=== PATIENT | male | born 1970 | race Caucasian/White ===

== ENCOUNTER 2023-11-13 19:35 | Emergency (ER) | payer OTHER, SELFPAY ==
[2023-11-13 19:37] VITALS: BP 133/84
--- NOTE | 2023-11-13 20:22 | ED.GENMED ---
History of Present Illness
General
Chief Complaint: Ear Problem
Source: patient
Exam Limitations: none
Time Seen by Provider: 11/13/23 19:59
Nursing documentation reviewed up to this point in time: agreed with
History of Present Illness
History of Present Illness:
Patient to ED with cmoplaint of pain to right ear. States symptoms started approx. 3 weeks ago and continue to worsen. Denies fever/chills, recent illness. Reports discharge from his ear and now has pulsatile tinnitus. Brought self to ED for eval
Past History
Past History
ED Past Medical History: None
ED Past Surgical History: None
Social History
Tobacco: Former smoker
Alcohol: Occasional
Personal:
Living: with family
Family History
Family History: CAD (His grandparents) and Other (Mother with psoriasis); Negative Diabetes, Hypertension, Early CAD, Asthma or Cancer
Review of Systems
Review of Systems
Allergies reviewed?: Yes
All Other Systems: ROS reviewed and negative except as documented in HPI and ROS
Constitutional: Reports no symptoms
EENT: Reports other (pain, tinnitus right ear)
Respiratory: Reports no symptoms
Cardiac: Reports no symptoms
ABD/GI: Reports no symptoms
: Reports no symptoms
Musculoskeletal: Reports no symptoms
Skin: Reports no symptoms
Neurological: Reports no symptoms
Psychiatric: Reports no symptoms
Phy Exam
General Physical Exam
General Presentation: well appearing and no apparent distress
General age: appears stated age
General Skin: warm and dry
General Habitus: normal
General Mental: alert
General Hydration: appears well hydrated
ENT Exam
ENT Exam: EOMI, pharynx normal, neck supple, normocephalic and TM's abnormal (right TM perforation)
Eye Exam
Eye Exam: PERRL, EOMI and conjunctiva normal
Musculoskeletal Exam
Musculoskeletal Exam: full ROM and neuro vasc intact
Skin Exam
Skin Exam: normal color, warm/dry and no rash
Psychiatric Exam
Psychiatric Exam: normal mood/affect
Course
Orders/Labs/Results
Orders:
Orders
11/13/23 20:16
Amoxicillin 875 mg/Clav 125 mg [Augmentin 875 mg/125 mg] 1 tablet PO NOW STA
Neomycin/Polymyxin/Hc [Cortisporin Otic Suspension] 4 drop OTIC NOW STA
Vital Signs
Initial and Last Documented VS:
Initial Vital Signs
Temp Pulse Resp BP Pulse Ox
99.7 F 80 16 133/84 96
11/13/23 19:37 11/13/23 19:37 11/13/23 19:37 11/13/23 19:37 11/13/23 19:37
Last Documented Vital Signs
Temp Pulse Resp BP Pulse Ox
99.7 F 80 16 133/84 96
11/13/23 19:37 11/13/23 19:37 11/13/23 19:37 11/13/23 19:37 11/13/23 19:37
*Critical Care Note
Total Time (30-74mins, 75-104mins- exclusive of procedures): Not Applicable
Update Note
Update Note:
Right TM perforation. Augmentin started in dept. WIll discharge home, followup with ENT.
ED Attending Note
-
Portions of this chart may have been created with voice recognition software.� Occasional wrong word or��sound alike� substitutions may have occurred due to the inherent limitations of voice recognition software.
Discharge Plan
Departure
Patient Disposition: Home (Routine Discharge)
Date of Disposition: 11/13/23
Time of Disposition: 20:17
Patient with high blood pressure during this ER visit?: No
Condition: Good
Covid-19: Not Applicable
Discharge Problem:
Tympanic membrane perforation
Instructions: Ruptured Eardrum (DC)
Prescriptions:
New
amoxicillin-pot clavulanate 875-125 mg tablet
1 tab PO BID Qty: 20 0RF
No Action
aspirin [Aspir-Low] 81 MG tablet,delayed release (DR/EC)
81 mg PO DAILY
Referrals:
Fritz Smith DO [Family Provider] -
Mc Burns MD [Active] - Call in 1-3 days for appt
Discharge Date and Time
Print Language: TURKMEN
[2023-11-13] MEDS: CORTISPORIN OTIC SUSPENSION 4 DROP OTIC (20:35)
[2023-11-13] MEDS: AUGMENTIN 875 MG/125 MG 1 TABLET PO (20:35)
== END 2023-11-13 20:40 | disposition home or self-care (01) ==
LOC: EMR 19:35
PROVIDERS: EMERGENCY PHYSICIAN Emergency Medicine; FAMILY PHYSICIAN Family Medicine
DX: H72.91 Unspecified perforation of tympanic membrane, right ear (principal); Z87.891 Personal history of nicotine dependence
CPT/HCPCS: 99283

== ENCOUNTER 2023-11-28 14:16 | Emergency (ER) | payer OTHER, SELFPAY ==
[2023-11-28 14:22] VITALS: BP 127/99
--- NOTE | 2023-11-28 15:11 | ED.GENMED ---
History of Present Illness
General
Chief Complaint: Foreign Body Removal
Time Seen by Provider: 11/28/23 14:40
History of Present Illness
History of Present Illness:
52-year-old male presents to the emergency department upon referral from his primary care physician for evaluation of a possible foreign body in the right ear. He states that 10 days ago he was diagnosed with acute otitis media with perforation and
was prescribed otic antibiotics as well as oral antibiotics. These are completed at this time and he went back to his primary care for follow-up. Patient denies any pain but still has residual hearing loss after the initial diagnosis
Past History
Past History
ED Past Medical History: None
ED Past Surgical History: None
Social History
Tobacco: Former smoker
Alcohol: Occasional
Personal:
Living: with family
Family History
Family History: CAD (His grandparents) and Other (Mother with psoriasis); Negative Diabetes, Hypertension, Early CAD, Asthma or Cancer
Review of Systems
Review of Systems
Allergies reviewed?: Yes
All Other Systems: ROS reviewed and negative except as documented in HPI and ROS
Phy Exam
Physical Exam
Physical Exam:
GEN: Well appearing, NAD, WDWN
HEENT: Oral mucosa moist, no scleral icterus. The right external auditory canal is clear however the innermost aspect adjacent to the TM there is a yellowish and black collection of debris, unable to visualize the TM fully, no otorrhea
Cardiac: Regular rate
Lung: No respiratory distress, no tachypnea
MSK: No gross deformity or injuries
Skin: Good color, no pallor or jaundice, no rashes
Neuro: AO x3, moves all extremities freely
Psych: Calm, cooperative
Course
Vital Signs
Initial and Last Documented VS:
Initial Vital Signs
Temp Pulse Resp BP Pulse Ox
98.4 F 71 18 127/99 98
11/28/23 14:22 11/28/23 14:22 11/28/23 14:22 11/28/23 14:22 11/28/23 14:22
Last Documented Vital Signs
Temp Pulse Resp BP Pulse Ox
98.4 F 71 18 127/99 98
11/28/23 14:22 11/28/23 14:22 11/28/23 14:22 11/28/23 14:22 11/28/23 14:22
MDM/Problems Addressed
MDM/Problems Addressed:
Unclear if this is a foreign body or a collection of debris, will recommend ENT follow-up, hesitant to irrigate the ear given the recent perforation
*Critical Care Note
Total Time (30-74mins, 75-104mins- exclusive of procedures): Not Applicable
ED Attending Note
-
Portions of this chart may have been created with voice recognition software.� Occasional wrong word or��sound alike� substitutions may have occurred due to the inherent limitations of voice recognition software.
Discharge Plan
Departure
Patient Disposition: Home (Routine Discharge)
Date of Disposition: 11/28/23
Time of Disposition: 15:11
Patient with high blood pressure during this ER visit?: No
Discharge Problem:
Foreign body in ear
Prescriptions:
No Action
aspirin [Aspir-Low] 81 MG tablet,delayed release (DR/EC)
81 mg PO DAILY
amoxicillin-pot clavulanate 875-125 mg tablet
1 tab PO BID Qty: 20 0RF
Referrals:
Jacinto Guerrero MD [Active] -
Activity Restrictions/Additional Instructions:
Call the ENT specialist office tomorrow for follow up appointment
We discussed that irrigating the ear may be detrimental
Interventions
Interventions:
*Risk Screen - Suicide Last Done: 11/28/23 14:22
*General Assessment Last Done: 11/28/23 14:22
*Neglect/Abuse Screening Last Done: 11/28/23 14:22
*ED COVID-19 Vaccine History Last Done: 11/28/23 14:22
*Nursing Disposition Last Done: 11/28/23 15:31
Discharge Date and Time
Discharge Date/Time: 11/28/23 15:32
Print Language: ANGUILLAN
== END 2023-11-28 15:32 | disposition home or self-care (01) ==
LOC: EMR 14:16
PROVIDERS: EMERGENCY PHYSICIAN Student in an Organized Health Care Education/Training Program; FAMILY PHYSICIAN Family Medicine
DX: T16.1XXA Foreign body in right ear, initial encounter (principal); W44.9XXA Unspecified foreign body entering into or through a natural orifice, initial encounter; Z87.891 Personal history of nicotine dependence
CPT/HCPCS: 99282

== ENCOUNTER → 2024-02-16 09:59 | Outpatient (REF) | payer OTHER, SELFPAY | LOC: HWRAD 09:59 | PROVIDERS: ATTENDING PHYSICIAN Family Medicine | DX: Z87.891 Personal history of nicotine dependence (principal) | CPT/HCPCS: 71271 ==

== ENCOUNTER 2025-03-25 19:35 | Emergency (ER) | payer OTHER, SELFPAY ==
[2025-03-25 19:43] VITALS: BP 119/95
[2025-03-25 19:56] LABS: Hematocrit 47.2 % (39.0-52.0); Hemoglobin 16.3 g/dL (13.0-18.0); Mean Corp Hgb Conc. 34.5 g/dL (33.0-37.0); Mean Corpuscular Volume 90.1 fL (80.0-94.0); Nucleated Red Blood Cells % 0 % (-); Platelet Count 262 10^3/uL (130-400); Red Cell Dist. Width 13.2 % (11.5-14.5)
[2025-03-25 20:13] LABS: ALT (SGPT) 41 U/L (0-50); AST (SGOT) 28 U/L (17-59); Albumin 4.5 g/dl (3.5-5.0); Alkaline Phosphatase 76 U/L (38-126); Blood Urea Nitrogen 26 mg/dl (9-20); Calcium 9.6 mg/dl (8.4-10.2); Carbon Dioxide 28 mmol/L (22-30); Chloride 100 mmol/L (98-107); Glucose 104 mg/dl (70-99); Potassium 4.3 mmol/L (3.5-5.1); Sodium 135 mmol/L (135-145); Total Protein 7.5 g/dl (6.3-8.2); eGFR > 60.00
[2025-03-25 20:24] LABS: Troponin I 0.016 ng/ml
[2025-03-25 20:48] VITALS: BP 131/61
--- NOTE | 2025-03-25 20:52 | ED.GENMED ---
History of Present Illness
General
Chief Complaint: Chest Pain
Source: patient
Exam Limitations: none
Time Seen by Provider: 03/25/25 20:47
History of Present Illness
History of Present Illness:
Note:
CHIEF COMPLAINT(S)
Chest pain
HISTORY OF PRESENT ILLNESS
The patient is a 54-year-old male who presents with chest pain that began a week to a week and a half ago. The patient describes the pain as occurring after physical activity, such as playing golf. He expresses that the pain is located more toward
the center of his chest and slightly upwards, with radiating discomfort. 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 He originally felt the chest pain while
walking during a golf game on Tuesday. The patient has a history of smoking and raises the possibility of coronary artery disease due to family history; however, his parents have no known heart history, though his grandfather had a cardiac condition.
The pain is concerning enough to warrant further investigation, although the initial blood tests, including hormone tests, appear normal.
PAST MEDICAL AND SURIGICAL HISTORY
The patient reported having a calcium scoring test (CT scan) in the past as part of cardiac evaluation.
SOCIAL HISTORY
The patient reports current smoking.
REVIEW OF SYSTEMS
- Chest: Describes central chest pain that radiates, associated with exertion and stress.
- Respiratory: States occasional breathing difficulty when inhaling deeply or exposure to cold air.
- Psychological: Reports experiencing stress related to business matters.
PHYSICAL EXAM
General: Alert, no acute distress.
Skin: Warm, dry.
Head: Normocephalic, atraumatic.
Neck: Supple, trachea midline.
Eye Ears, nose, mouth and throat: Oral mucosa moist.
Cardiovascular: Normal peripheral perfusion, no edema.
Respiratory: Respirations are non-labored.
Gastrointestinal: Abdomen nondistended.
Back: Normal range of motion, Normal alignment.
Musculoskeletal: Normal range of motion, normal strength.
Neurological: Alert and oriented to person, place, time, and situation. No focal neurological deficit observed.
Psychiatric: Cooperative, appropriate mood and affect.
PLAN
- Repeat the troponin test to continue evaluating cardiac risk, given the chest pain symptoms.
- If the repeated tests are negative, plan to discharge the patient and arrange a follow-up with a manager regulatory.
- The patient will receive a follow-up call tomorrow morning from the cardiology team.
- Review the patients prior calcium scoring test results to assess for any significant findings relevant to the current presentation.
DIFFERENTIAL DIAGNOSIS
The Differential Diagnosis includes, in no particular order and is not limited to:
1. Coronary artery disease
2. Gastroesophageal reflux disease
3. Musculoskeletal pain
4. Costochondritis
5. Pulmonary embolism
6. Pneumothorax
7. Anxiety-related chest pain
8. Pericarditis
9. Aortic dissection
10. Pneumonia
EKG
My independent EKG interpretation is:
- Time of EKG: Not specified
- Rhythm: Normal sinus rhythm
- Heart Rate: 78 bpm
- MA Interval: Normal
- QRS Duration: Normal
- QT Interval: Normal
- Leland: Normal
- Abnormalities: None
- Overall Interpretation: Normal EKG
Disposition:
SUMMARY OF ENCOUNTER
The patient is a 54-year-old male who was seen in the emergency department for chest pain that began a week to a week and a half ago. The chest pain occurred after physical activity, such as playing golf, and was described as central with some
radiating discomfort. The patient has a history of smoking and a familial history that raises the possibility of coronary artery disease; however, his immediate family has no known cardiac conditions. Initial blood tests, including hormone tests,
appeared normal. In the emergency department, serial troponin tests were negative, and an EKG was normal. The patient was assessed to not be suffering from acute coronary syndrome (ACS) at the time of evaluation. Management included the decision to
discharge the patient with instructions to follow up with cardiology through a chest pain hotline.
DISPOSITION
Discharge
PLAN
The patient is to be discharged with a follow-up arrangement through the chest pain hotline for cardiology consultation. Further assessment and management based on cardiology evaluation may be necessary.
INDEPENDENT REVIEW OF LABS AND INTERPRETATION OF TESTS
My independent review of the troponin test reveals serial negative results. My independent EKG interpretation is: Normal sinus rhythm, no abnormalities identified.
FOLLOW-UP INSTRUCTIONS
The patient is advised to follow up with cardiology via the chest pain hotline for further evaluation.
MEDICAL DECISION MAKING
- Number and Complexity of Problems Addressed: Chronic conditions affecting care include a history of smoking and potential coronary artery disease. Differential diagnoses considered were: coronary artery disease, gastroesophageal reflux disease,
musculoskeletal pain, costochondritis, pulmonary embolism, pneumothorax, anxiety-related chest pain, pericarditis, aortic dissection, and pneumonia.
- Data:
Category 1: My independent interpretation of EKG showed no abnormalities. Clinical data from troponin tests indicated negative results.
Category 3: Management decisions were made based on normal EKG and negative troponin results with the decision to discharge the patient while ensuring follow-up with cardiology.
- Risk: Consideration of Admission/Observation: Escalation of care including admission/observation was considered given the complexity and risk of the patients presenting complaint, exam findings, and his underlying comorbidities. However,
ultimately I feel the patient is safe for outpatient management with close follow-up. Reasoning: Work-up reassuring, does not reveal any acute life/organ-threatening processes, patients symptoms well controlled upon reevaluation, reexamination is
reassuring, vitals are stable, patient agreeable with discharge, reliable for follow-up.
DIAGNOSIS
R07.9 Chest pain, unspecified
Past History
Past History
ED Past Medical History: None
ED Past Surgical History: None
Social History
Tobacco: Former smoker
Alcohol: Occasional
Personal:
Living: with family
Family History
Family History: CAD (His grandparents) and Other (Mother with psoriasis); Negative Diabetes, Hypertension, Early CAD, Asthma or Cancer
Phy Exam
Physical Exam
Physical Exam:
.
Scores
Heart Score for Chest Pain Patients
STEMI patient?: No
History: Slightly or Non-Suspicious
ECG: Normal
Age: >45 - <65 years
Risk Factors: 1 or 2 Risk Factors
Troponin: </= Normal Limit
Heart Score for Chest Pain Patients: 2
Heart Score Risk: 2.5% MACE over next 6 weeks
Course
Orders/Labs/Results
Orders:
Orders
03/25/25 19:36
Electrocardiogram (*1) Urgent
Reason for Study: Chest Pain
EKG- Treatment ONCE
03/25/25 19:48
Complete Blood Count/With Diff Urgent
Comprehensive Metabolic Panel Urgent
Troponin I Urgent
03/25/25 21:43
CR Chest - 2 Views Urgent
Comment:
Reason For Exam: chest pain
03/25/25 22:25
Electrocardiogram (*1) Urgent
Reason for Study: Chest Pain
EKG- Treatment ONCE
03/25/25 22:28
Troponin I Urgent
03/25/25 23:54
Aspirin Chewable [Low Strength Aspirin] 324 mg .ROUTE .STK-MED ONE
Aspirin Chewable [Low Strength Aspirin] 324 mg PO NOW STA
03/26/25 01:17
Troponin I Urgent
Abnormal Lab Results
03/25/25 03/25/25 03/26/25
19:48 22:28 01:17
MCH 31.1 H pg
(27.0-31.0)
Abs Immat Gran (auto) 0.1 H 10^3/uL
(0-0.05)
Immature Gran % 0.6 H %
(0-0.5)
BUN 26 H mg/dl
(9-20)
Glucose 104 H mg/dl
(70-99)
Troponin I 0.035 H* D ng/ml 0.037 H* ng/ml
03/25/25 19:48
03/25/25 19:48
Vital Signs
Initial and Last Documented VS:
Initial Vital Signs
Temp Pulse Resp BP Pulse Ox
97.6 F 93 16 119/95 99
03/25/25 19:43 03/25/25 19:43 03/25/25 19:43 03/25/25 19:43 03/25/25 19:43
Last Documented Vital Signs
Temp Pulse Resp BP Pulse Ox
97.6 F 64 14 126/82 96
03/25/25 19:43 03/26/25 01:45 03/26/25 01:45 03/26/25 01:00 03/26/25 01:15
*Pulse Oximetry
SaO2: 99
Oxygen Mode of Delivery: Room air
Patient hypoxic: no
*Critical Care Note
Total Time (30-74mins, 75-104mins- exclusive of procedures): Not Applicable
ED Attending Note
-
Portions of this chart may have been created with voice recognition software.� Occasional wrong word or��sound alike� substitutions may have occurred due to the inherent limitations of voice recognition software.
Discharge Plan
Departure
Patient Disposition: Home (Routine Discharge)
Date of Disposition: 03/26/25
Time of Disposition: 02:15
Patient with high blood pressure during this ER visit?: Yes
Condition: Good
Discharge Problem:
Chest pain
Instructions: Chest Pain CBC Follow Up, BLOOD PRESSURE
Prescriptions:
No Action
aspirin [Aspir-Low] 81 MG tablet,delayed release (DR/EC)
81 mg PO DAILY
amoxicillin-pot clavulanate 875-125 mg tablet
1 tab PO BID Qty: 20 0RF
Referrals:
Fritz Smith DO [Family Provider, Family Practice] - Call in 1-3 days for appt
Interventions
Interventions:
*Risk Screen - Suicide Last Done: 03/25/25 19:43
*General Assessment Last Done: 03/25/25 19:43
*Neglect/Abuse Screening Last Done: 03/25/25 19:43
*ED COVID-19 Vaccine History Last Done: 03/25/25 21:58
*ED Influenza Vaccine History Last Done: 03/25/25 21:58
[facility] Fall Risk Assessment Tool Last Done: 03/25/25 21:58
ED- Cardiac Assessment Last Done: 03/25/25 21:58
Discharge Date and Time
Print Language: BURKINAN
[2025-03-25 21:00] VITALS: BP 138/75
[2025-03-25 21:58] VITALS: BMI 27.5
[2025-03-25 22:00] VITALS: BP 122/70
[2025-03-25 23:00] VITALS: BP 112/73
[2025-03-25 23:43] LABS: Troponin I 0.035 ng/ml
[2025-03-25] MEDS: LOW STRENGTH ASPIRIN 324 MG PO (23:56)
--- NOTE | 2025-03-25 23:57 | EDRN ---
Patient was updated on labs and plan fo repeat troponin around 0130, patient resting comfortably otherwise
[2025-03-26] VITALS: BP 135/75
[2025-03-26 01:00] VITALS: BP 126/82
--- NOTE | 2025-03-26 01:48 | EDRN ---
Patient ambulated to the restroom and back in bed resting comfortably
[2025-03-26 02:00] VITALS: BP 126/74
[2025-03-26 02:11] LABS: Troponin I 0.037 ng/ml
== END 2025-03-26 02:59 | disposition home or self-care (01) ==
LOC: EMR 19:35
PROVIDERS: Emergency Medicine; EMERGENCY PHYSICIAN Emergency Medicine; FAMILY PHYSICIAN Family Medicine
DX: R07.9 Chest pain, unspecified (principal); R03.0 Elevated blood-pressure reading, without diagnosis of hypertension; Z82.49 Family history of ischemic heart disease and other diseases of the circulatory system; Z79.82 Long term (current) use of aspirin
CPT/HCPCS: 99284; 71046; 80053; 84484; 85025; 93005

== ENCOUNTER 2025-03-28 08:03 | Day surgery (SDC) | payer OTHER, SELFPAY ==
[2025-03-28] VITALS (10 sets, daily range): BP systolic 103–155; BP diastolic 64–118; BMI 27.0
[2025-03-28] MEDS: NSS 238 ML IV (08:48)
[2025-03-28] MEDS: LOW STRENGTH ASPIRIN 81 MG PO (08:49)
[2025-03-28] MEDS: NSS 1000 IV (12:22)
--- NOTE | 2025-03-28 13:48 | ITS.CL.CATH ---
[facility] Operator - Catheterization
Cardiac Catheterization
Procedure Report:
CARDIAC CATHETERIZATION REPORT
Date of Procedure: 03/28/2025
Referring: Pancho Taylor M.D.
INDICATION: High risk chest pain.
PROCEDURE:
1. Left heart catheterization.
2. Coronary angiography.
A total of 24 minutes of procedural/moderate sedation was utilized. An independent biomedical repair technician was present to assist with and help manage the patient's level of consciousness and physiologic status.
ACCESS:
1. 6 [place] right radial artery using a modified Seldinger technique.
CATHETERS:
1. 5 [place] JR4.
2. 5 [place] JL 3.5.
HEMODYNAMIC DATA
Weight (kg): 79.2
AO (s/d/x, mmHg): 120/77/95
LV (s/x mmHg): 124/9
AV gradient (x, mmHg): None.
LEFT VENTRICULOGRAPHY: Not performed.
CORONARY ANGIOGRAPHY
Dominance: Right.
Left Main: Normal size, bifurcating vessel. There is no coronary artery disease.
LAD: Normal size vessel giving rise to 2 diagonals. There is an 80+% lesion beginning in the proximal vessel reaching its most critical point in the mid LAD, immediately after the origin of the first diagonal.
Ramus: Congenitally absent.
Circumflex: Normal size, nondominant vessel giving rise to 1 obtuse marginal before terminating as a small arcade of left posterolateral branches. There is a 70% lesion in the proximal margin of the obtuse marginal.
RCA: Normal size, dominant vessel. There is a 60+ percent lesion within the ostium/proximal RCA with catheter dampening on engagement, a 75% lesion in the mid vessel and several 20% lesions in the distal vessel.
INTERVENTION(S)
None.
Closure Device: Vascular band.
Radiation (mGy): 283.96
DAP (cm2.Gy): 26.4301
Fluoroscopy time (minutes): 2.9
CONCLUSIONS
1. Right dominant circulation with an 80+% lesion in the proximal/mid LAD involving the origin of the first diagonal, a 70% lesion in the proximal margin of OM1, a 60+% lesion within the ostium/proximal RCA with catheter dampening on engagement
followed by a 75% lesion in the mid RCA and several 20% lesions in the distal RCA.
2. Normal filling pressures (LVEDP = 9 mmHg at 79.2 kg).
RECOMMENDATIONS:
1. Expectant management after cardiac catheterization via right radial approach.
2. Limited weight bearing on the right for one week.
3. Consultation with CT surgery regarding optimal revascularization strategy, favoring bypass given the patient's age and multivessel disease with proximal LAD involvement.
4. Start OMT/GDMT including metoprolol, aspirin and high-dose, high potency statin.
5. Sublingual nitroglycerin prescription has been provided for symptomatic relief.
6. Echocardiogram ordered (outpatient).
7. Stable for outpatient follow-up. We did review red flag symptoms.
Copy to: Fritz Smith D.O., Pancho Taylor M.D.
Cholo Nash, , FACC, FACP
== END 2025-03-28 14:47 | disposition home or self-care (01) ==
LOC: CATH 08:03
PROVIDERS: ATTENDING PHYSICIAN Internal Medicine Cardiovascular Disease; FAMILY PHYSICIAN Family Medicine; OTHER PHYSICIAN Student in an Organized Health Care Education/Training Program
DX: I25.10 Atherosclerotic heart disease of native coronary artery without angina pectoris (principal); R07.9 Chest pain, unspecified; Z79.82 Long term (current) use of aspirin; Z79.899 Other long term (current) drug therapy; F17.210 Nicotine dependence, cigarettes, uncomplicated
CPT/HCPCS: 93458; 99152; 99153; C1769; Q9967

== ENCOUNTER 2025-04-05 05:03 | Inpatient (IN) | payer OTHER, SELFPAY ==
[2025-04-02 08:22] VITALS: BMI 27.8
[2025-04-02 09:26] LABS: INR 0.94; PT 12.7 Sec (11.4-14.6)
[2025-04-02 09:30] LABS: Hematocrit 50.4 % (39.0-52.0); Hemoglobin 17.2 g/dL (13.0-18.0); Mean Corp Hgb Conc. 34.1 g/dL (33.0-37.0); Mean Corpuscular Volume 89.7 fL (80.0-94.0); Nucleated Red Blood Cells % 0 % (-); Platelet Count 252 10^3/uL (130-400); Red Cell Dist. Width 12.8 % (11.5-14.5)
[2025-04-02 09:35] LABS: Urine Character Clear (Clear)
[2025-04-02 09:37] LABS: ALT (SGPT) 50 U/L (0-50); AST (SGOT) 28 U/L (17-59); Albumin 4.9 g/dl (3.5-5.0); Alkaline Phosphatase 88 U/L (38-126); Blood Urea Nitrogen 19 mg/dl (9-20); Calcium 10.0 mg/dl (8.4-10.2); Carbon Dioxide 30 mmol/L (22-30); Chloride 98 mmol/L (98-107); Estimated Creatinine Clearance 71 ml/min; Glucose 92 mg/dl (70-99); Potassium 5.0 mmol/L (3.5-5.1); Sodium 134 mmol/L (135-145); Total Protein 8.1 g/dl (6.3-8.2); eGFR > 60.00
[2025-04-02 09:40] LABS: Urine Red Blood Cell 0-2 /HPF (0-2); Urine Squamous Cell 0-2 /LPF (Few); Urine White Cell 0-2 /HPF (0-5)
--- NOTE | 2025-04-02 10:48 | CM ---
Spoke with patient in PATs. We discussed pre-op CABG teaching including sternal and driving restrictions. Previously independent at baseline, lives with in 2 story home, no steps to enter, denies DMEs. He has the CT surgery education book,
soap, and instructions. He is agreeable to a follow up visit from the CT transitional care nurse following DC. CM role explained, all questions answered. Plan for CABG 04/05/25.
[2025-04-02 11:24] LABS: Glycohemoglobin (HgbA1c) 5.6 % (4.0-5.9)
[2025-04-05] VITALS (10 sets, daily range): BP systolic 98–122; BP diastolic 57–87; PULSE 68; BMI 26.9
[2025-04-05] MEDS: BACTROBAN 2% OINTMENT 1 APPLIC NASAL ×2 (06:00→20:00)
[2025-04-05] MEDS: PROTONIX 40 MG PO (06:05)
[2025-04-05] MEDS: MAGNESIUM OXIDE 400 MG PO (06:05)
[2025-04-05] MEDS: LOPRESSOR 12.5 MG PO (06:15)
--- NOTE | 2025-04-05 06:15 | W.CVOR.SURPR ---
CVOR Surgeon Immed Pre Op
-
I have examined this patient prior to performance of the scheduled procedure.
The patient's condition is unchanged from the time of the dictated/written History and
Physical and the patient is able to undergo the scheduled procedure.
CABG +/- LAAE
--- NOTE | 2025-04-05 06:30 | PTCARENOTE ---
Pt admitted to CVICU at 0511. VS done. Pt weighed. Admission questions, Pre-op checklist, and Med reconciliation completed. Metoprolol 12.5 mg po given per order of PA. at bedside. Dr. Lockwood in to see pt. CVOR called at 0623. Pt left for CVOR
with RN at 0629.
[2025-04-05 07:30] LABS: Urine Character Clear (Clear)
[2025-04-05 07:38] LABS: ACT+ - POC 118 Seconds (82-134)
[2025-04-05 08:19] LABS: Urine Red Blood Cell 0-2 /HPF (0-2); Urine White Cell 0-2 /HPF (0-5)
[2025-04-05 08:21] LABS: Urine Squamous Cell 0-2 /LPF (Few)
[2025-04-05 09:02] LABS: ACT+ - POC 524 Seconds (82-134)
[2025-04-05 09:15] LABS: B.E. - POC 0.7 mmol/L; Glucose - POC 117 mg/dl (70-99); HCO3 - POC 26 mmol/L (21-28); Hematocrit - POC 45 % PCV (42-52); Hemodilution- POC No; Hemoglobin Calculated - POC 15.3; Ionized Calcium - POC 1.18 mmol/L (1.15-1.33); Lactate - POC 0.39 mmol/L (0.36-0.75); O2 Saturation %Calculated-POC 99.9 % (94-98); PCO2 - POC 41 mmHg (35-48); PO2 - POC 355 mmHg (83-108); Potassium - POC 4.0 mmol/L (3.5-5.1); Sodium - POC 140 mmol/L (136-145); Specimen Type - POC Arterial; pH - POC 7.41 (7.35-7.45)
[2025-04-05 09:27] LABS: ACT+ - POC 576 Seconds (82-134)
[2025-04-05 09:49] LABS: B.E. - POC 1.1 mmol/L; Glucose - POC 159 mg/dl (70-99); HCO3 - POC 26 mmol/L (21-28); Hematocrit - POC 28 % PCV (42-52); Hemodilution- POC Yes; Hemoglobin Calculated - POC 9.6; Ionized Calcium - POC 1.01 mmol/L (1.15-1.33); Lactate - POC 1.05 mmol/L (0.36-0.75); O2 Saturation %Calculated-POC 99.9 % (94-98); PCO2 - POC 42 mmHg (35-48); PO2 - POC 292 mmHg (83-108); Potassium - POC 6.3 mmol/L (3.5-5.1); Sodium - POC 135 mmol/L (136-145); Specimen Type - POC Arterial; pH - POC 7.40 (7.35-7.45)
--- NOTE | 2025-04-05 09:50 | CM ---
pt in OR today, cm to follow
[2025-04-05 09:59] LABS: ACT+ - POC 533 Seconds (82-134)
[2025-04-05 10:02] LABS: B.E. - POC 0.1 mmol/L; Glucose - POC 185 mg/dl (70-99); HCO3 - POC 24 mmol/L (21-28); Hematocrit - POC 37 % PCV (42-52); Hemodilution- POC Yes; Hemoglobin Calculated - POC 12.7; Ionized Calcium - POC 1.05 mmol/L (1.15-1.33); Lactate - POC 1.26 mmol/L (0.36-0.75); O2 Saturation %Calculated-POC 99.9 % (94-98); PCO2 - POC 37 mmHg (35-48); PO2 - POC 245 mmHg (83-108); Potassium - POC 6.6 mmol/L (3.5-5.1); Sodium - POC 135 mmol/L (136-145); Specimen Type - POC Arterial; pH - POC 7.42 (7.35-7.45)
[2025-04-05 10:22] LABS: B.E. - POC -0.5 mmol/L; Glucose - POC 153 mg/dl (70-99); HCO3 - POC 24 mmol/L (21-28); Hematocrit - POC 35 % PCV (42-52); Hemodilution- POC Yes; Hemoglobin Calculated - POC 12.0; Ionized Calcium - POC 0.95 mmol/L (1.15-1.33); Lactate - POC 1.30 mmol/L (0.36-0.75); O2 Saturation %Calculated-POC 99.9 % (94-98); PCO2 - POC 37 mmHg (35-48); PO2 - POC 247 mmHg (83-108); Potassium - POC 5.8 mmol/L (3.5-5.1); Sodium - POC 138 mmol/L (136-145); Specimen Type - POC Arterial; pH - POC 7.42 (7.35-7.45)
[2025-04-05 10:33] LABS: B.E. - POC -0.8 mmol/L; Glucose - POC 149 mg/dl (70-99); HCO3 - POC 25 mmol/L (21-28); Hematocrit - POC 37 % PCV (42-52); Hemodilution- POC Yes; Hemoglobin Calculated - POC 12.5; Ionized Calcium - POC 1.29 mmol/L (1.15-1.33); Lactate - POC 1.44 mmol/L (0.36-0.75); O2 Saturation %Calculated-POC 97.0 % (94-98); PCO2 - POC 42 mmHg (35-48); PO2 - POC 94 mmHg (83-108); POC Comment POST; Potassium - POC 4.9 mmol/L (3.5-5.1); Sodium - POC 139 mmol/L (136-145); Specimen Type - POC Arterial; pH - POC 7.38 (7.35-7.45)
--- NOTE | 2025-04-05 10:59 | W.PN.CT.SURG ---
CT Surgery Operative Note
-
CARDIAC SURGERY OPERATIVE REPORT
Preoperative Diagnosis: Multivessel Coronary Artery Disease with unstable angina
Postoperative Diagnosis: Same
Procedure(s) Performed:
1. Standard Sternotomy with Aortic and Right Atrial Cannulation
2. Internal Mammary Artery Harvesting, Left
3. Multi Arterial Coronary artery bypass grafting x 3 (In situ CARDONA to LAD, Ao to radial to bifurcating OM, Ao to RSVG to RPDA)
4. Endoscopic vein harvesting of right lower extremity and left radial artery for conduit
5. Transesophageal echocardiography
6. Placement of Temporary Ventricular Pacing Wires
7. Left atrial appendage exclusion (35mm clip)
8. Rigid sternal fixation with plates and sternal wires (2 gold plates with 8 x 14mm screws)
Date of Surgery: 04/05/2025
Comorbidities:
1. Unstable angina in the setting of multivessel coronary artery disease
2. Recent smoking history
3. Family history of CAD
4. Hyperlipidemia
5. Hypertension
6. Psoriasis
Attending Surgeon: Darien Lockwood MD, MS
Assistants: Dante Rich PA-C (present and necessary to logistics assistant, endoscopic radial harvest, retraction, suction, exposure, suture management, and wound closure under my direction), Charisma Barboza PA-C (endo vein harvest)
Anesthesiology: Emile Valentine MD and Mariela Molina CRNA
Scrub and Circulating RNs: Kristi Solano RN, Darell Contreras RN
Taxi Proprietor: Cara Peterson CCP
Anesthesia: GETA
EBL: per perfusion records
Products: none, Cell Saver
CPB Time: 63 minutes
Aortic Cross Clamp Time: 52 minutes
Indication(s) for Procedures: This is a 54-year-old male with significant coronary calcification on his CT scan also has been experiencing chest discomfort with exertion and has progressed to chest pain at rest. He underwent left heart cath which
demonstrated multivessel coronary disease given his young age and disease pattern he was referred for surgical consideration. He is offered surgical revascularization using multiple arterial grafts given his age and disease pattern.
Conduit(s) Quality:
CARDONA -excellent, skeletonized
RSVG -excellent, large size but no varicosities, some mismatch in size compared to the RPDA target
Left radial -good quality, good size and caliber very small area of dissection distally which was excluded
Target(s) Quality:
RCA/PDA -small PDA however yielded a flow of approximately 20 cc a minute at a pressure of 80 mmHg across the vein graft
OM -excellent, good sized target accommodated the radial artery well and had a mean flow approximately 30 to 40 cc a minute at a pressure of 80 mmHg, excellent biphasic Doppler signal
LAD -excellent, good target, excellent visual flow to the LAD territory with visual pinking up the myocardium as well as the heart started beating upon release of the bulldog clamp.
Findings: His left ventricular ejection fraction preoperatively was 60% with no significant regional wall motion abnormalities. Following surgery his EF remained the same at 60% with no new regional wall motion abnormalities. The CARDONA was harvested
in a skeletonized fashion. Following bypass grafting, test dose cardioplegia was given down each distal and confirmed patency and hemostasis. Each distal was probed both proximally and distally to confirm disease and patency, respectively. There
was excellent visual flow into the LAD territory. Upon release of the bulldog clamp well testing the anastomosis his heart started beating. He did not require any blood products. Did not require any inotropic support. He was in sinus rhythm at
the end of the case. There was a short period while packing the chest for sternal wire placement where he developed ST changes and some hypotension. The packs were removed and I suspect that there was some radial artery spasm. The padding was
placed along the radial artery graft with immediate resolution of the ST segment elevation. I repeat transesophageal echo revealed no significant regional wall motion abnormalities or any changes from preoperative studies. His left atrial
appendage was verified be free of any thrombus or debris preoperatively and found to be totally occlusive postoperatively with 35mm clip (serial #[id number]).
Description of Procedure: The patient was taken to the operating room. Their identity and procedure to be performed were verified and they were positioned supine on the operating table. Induction via general anesthesia with endotracheal intubation
was performed and central venous access and arterial monitoring were inserted. A preoperative transesophageal echocardiogram was performed to assess cardiac function and valvular function. The patient was then prepped and draped from chin to feet in
a sterile fashion. A preoperative time-out was performed with all members of the team present. A midline chest incision was performed along with median sternotomy. Simultaneous endoscopic access of the right lower extremity for saphenous vein
harvest and left radial artery was obtained along with administration of an initial 5,000 units of IV heparin. A RulTract sternal retractor was positioned to exposure the left internal mammary bed. The mammary was harvested and found to have good
flow. A bulldog clamp was applied to the distal end of the mammary after dividing it. It was wrapped in a papaverine soaked RayTec and replaced back into the left hemithorax. The RulTract was exchanged for a median sternal retractor. The innominate
vein was isolated. Full heparinization was given (a total of 40,000 units). We created a pericardial well. The aortic cannulation site was chosen where it was soft, pliable, and free of calcium. Cannulation was performed with an arterial cannula in
the ascending aorta and a triple-stage venous cannula through the right atrial appendage. The arterial cannula line had an appropriate bounce and correlating pressures with test dosing. Next, a root vent/antegrade cannula was inserted into the
ascending aorta. The ACT was confirmed to be over 400 and retrograde autologous priming was performed before commencing cardiopulmonary bypass. The pulmonary artery was away from the aorta to facilitate a clamp site. The aortic cross-clamp
was placed after decreasing the flow on the bypass and mean arterial pressure. A total of 1.2L initial dose of antegrade Del-Nido cardioplegia solution was given and planned for re-dosing every 75 minutes as necessary. There was rapid
electro-mechanical arrest of the heart at 200 cc of cardioplegia. The left ventricle was observed for distention on echocardiogram and manual palpation. Cold slush was placed into a sponge and topically on the RV while we systemically cooled to 34
degrees centigrade.
I positioned the heart to expose the distal right coronary at the posterior descending artery. A nikolai blade was used to expose the coronary and perform the arteriotomy. Coronary Tsai scissors were used to enlarge the incision. The saphenous vein
was trimmed and beveled to an appropriate size. There was somewhat of a mismatch in size from the vein graft to the [place] RPDA which is quite small. The distal anastomosis was performed using 7-0 prolene in an end-to-side fashion. Antegrade
cardioplegia was administered into the graft. Appropriate hemostasis and flow were confirmed. The graft was measured for length to the aorta and cut. The heart was then rotated medially and the left atrial appendage was clipped with a 35mm device
flush the base. A suitable site on the bifurcated obtuse marginal was chosen with the larger branches chosen as the distal target. We dissected and prepared the distal target in a similar fashion. The distal end of the radial artery was spatulated
excluding an area of focal dissection. An end-to-side anastomosis was created with a 7-0 prolene. Antegrade cardioplegia was administered into the graft with the aid of an Angiocath. Appropriate hemostasis and flow were confirmed. The graft was
measured for length to the aorta and cut. A suitable target on the mid/distal left anterior descending was identified. We dissected and prepared the distal target in a similar fashion. We retrieved the CARDONA from the chest and created a pericardial
opening while being cognizant of the phrenic nerve to facilitate the course of the mammary. The distal end of the mammary was prepped and beveled to size. We verified orientation and length of the ESTEBAN and found brisk flow. An end-to-side anastomosis
was created with a 7-0 prolene. We temporarily released the bulldog clamp on the mammary to inspect flow. Perfusion to the LAD territory was visualized and hemostasis was confirmed. At this point the heart started to beat. The bull clamp was
replaced on the mammary. The heart was filled and the root was distended with antegrade cardioplegia to make final assessment of graft length and orientation. We created 2 aortotomies using a #11 blade then a 3.6mm aortic punch. The proximal
anastomoses were created in an end-to-side fashion using 6-0 prolene for the vein graft and 7-0 Prolene for the radial artery graft. At the the same time, we re-warmed to 36.5 degrees centigrade. The bulldog clamp was removed from the mammary.
Temporary bipolar ventricular pacing wires were placed on the base of the right ventricle. The patient was placed in a Trendelenburg position and flows on bypass were lowered. The aortic cross clamp was removed and flows were slowly brought back up.
All bypass grafts were inspected and were free from kinking or twisting. The distal and proximal anastomoses appeared hemostatic. Once transesophageal echocardiography appeared satisfactory for de-airing, the flows were temporarily lowered for root
vent removal. After verifying acceptable parameters, we initiated weaning from cardiopulmonary bypass. Once we were off cardiopulmonary bypass, the venous cannula was clamped and removed. A test dose of protamine was administered and the patient was
monitored for any adverse reaction before resuming protamine. Once half of the protamine dose was delivered, pump suckers were turned off and the systolic blood pressure was lowered for aortic decannulation. The aortic cannula was removed and
pursestrings were tied down. All cannulation sites were oversewn with a 4-0 prolene. The mammary bed was inspected and hemostasis was confirmed. Once the mediastinum was hemostatic, 19Fr Lane drain was placed in the left and right pleural cavity
and two 24Fr Lane drains were placed within the pericardium. The sternum was approximated with 4 #7 single and 3 #8 double stainless steel wires with additional gold plates and 14 mm screws x 8. Fascia was approximated with #1 vicryl suture. The
subcutaneous, dermis and epidermis were closed in layers in a running fashion. The skin wound was cleansed and dressed.
All instrument, sponge, and needle counts were confirmed to be correct x 2 at the end of the operation. The patient was transferred to the cardiac intensive care unit in critical but stable condition.
I, Dr. Darien Lockwood, was present, scrubbed for, and performed all critical elements of this procedure.
Darien Lockwood MD, MS
Cardiothoracic Surgeon
[facility]
This operative dictation was created using the [employer] dictation system. Please excuse any grammatical, typographical, or 'sound alike' errors
--- NOTE | 2025-04-05 11:07 | CON.INTV ---
Consultation
Consultation Request
Date/Time Consultation Requested: 04/05/2025 - 1033
Date/Time Consultation Performed: 04/05/2025 - 1101
Requesting Provider: GIULIANO Tucker
Performing Provider: Dr. Fields
Reason for Consultation: s/p CABG x3
Medical History
-
Chief Complaint: Elective CABG
History of Present Illness:
54-year-old male with a past medical history of multivessel CAD, history of tobacco use, Peyronie's disease, family history of CAD, hypercholesterolemia, psoriasis, and history of COVID-19 (04/2023) who presents for elective CABG. Patient known to
CT surgery service with last visit on 04/01/[address] Lockwood. Patient underwent a left heart catheterization on 03/28/2025 due to high risk chest pain, and this showed multivessel disease involving the proximal/mid LAD, proximal margin of the OM1,
ostium/proximal RCA and mid RCA. There was normal filling pressures seen with LVEDP 9 mmHg. Patient does exercise 3 times a week with weightlifting and light cardio. Discussion held with the patient and surgical revascularization was recommended
and he agreed to this. Today, patient underwent multi arterial CABG + left atrial appendage exclusion with a 35 mm clip. Patient underwent procedure with no immediate complications and was transferred to CVICU postoperatively for further care.
Manager [employer] service consulted for additional management/recommendations.
When I saw the patient, he was resting in bed in no acute distress. Drowsy from recent sedation although easily arousable but then quickly falls back asleep. He had already been extubated and was currently on 6 L/min nasal cannula, saturating 95%
with HR 73, BP via right radial A-line: 95/56, and currently on Levophed at 2 mcg/min, Cardene at 2.5 mg/hr and insulin 2.3 units/hr. He has bilateral pleural chest tubes and mediastinal chest tubes x 2.
PMHx: Multivessel CAD, history of tobacco use, peyronie's disease, family history of CAD, hypercholesterolemia, psoriasis, seasonal allergies, history of COVID-19 (April 2023)
PSHx: Eye surgery to fix strabismus (age 9), cardiac catheterization
Past Medical History
Past Medical History: Other (Above as per HPI)
Past Surgical History: Other (Above as per HPI)
Social History
Tobacco: Former Smoker
Alcohol: Occasional
Drug: None
Personal:
Living: With Family
Employment: Not Employed
Family History
Family History: CAD (Grandfather + brother), Hypertension (Mother) and Other (Migrated family history)
Allergies / Home Medications
Allergies
Allergy/AdvReac Type Severity Reaction Status Date / Time
onion Allergy Mild Rash Verified 04/05/25 05:42
Home Medications
�Medication �Instructions �Recorded �Confirmed �Last Taken �Type
aspirin 81 mg tablet,delayed 81 mg PO DAILY 05/17/16 04/05/25 04/04/25 08:00 History
release (Aspir-Low)
metoprolol succinate 25 mg 12.5 mg (1/2 x 25 mg) PO DAILY #90 03/28/25 04/05/25 04/04/25 19:30 Rx
tablet,extended release 24 hr tabs
nitroglycerin 0.4 mg sublingual 0.4 mg sublingual [id number] PRN 03/28/25 04/05/25 Unknown Rx
tablet chest pain #25 tabs
rosuvastatin 20 mg tablet 20 mg PO DAILY #30 tabs 03/28/25 04/05/25 04/04/25 19:30 Rx
multivitamin with minerals-folic 1 tab PO WEEKLY 04/05/25 04/05/25 03/22/25 08:00 History
acid 200 mcg chewable tablet
(Multivitamin Gummies)
Review of Systems
-
Unable to Obtain full review of systems at this time due to: Acuity
Vitals / Labs / Diagnostic Testing
Vital Signs
Temp Pulse Resp BP Pulse Ox
98.6 F 70 15 122/87 94
04/05/25 14:00 04/05/25 14:00 04/05/25 14:00 04/05/25 06:15 04/05/25 14:00
Lab Data
04/05/25 11:32
Laboratory Results
04/05/25 04/05/25
11:32 13:34
PT 16.1 H
INR 1.28
APTT 33.8
pH 7.37 7.27 L
pCO2 43 52 H
pO2 137 H 95
HCO3 24.9 23.9
O2 Delivery Level Not Reportable
Microbiology
04/02/25 08:38 Nose MRSA Screen - Final
No Methicillin Resistant Staphylococcus aureus isolated.
Diagnostic Testing:
Physical Exam
-
HEENT: Normocephalic and Anicteric
Cardiovascular: S1/S2 and Peripheral Edema (negative)
Respiratory: Wheeze (negative), Rales (negative), Rhonchi (negative), Non-Labored Respirations and Other (chest tubes: bilateral pleural chest tubes and mediastinal chest tubes x 2)
GI: Soft, Non Distended, Non Tender and Normal Bowel Sounds
Neurology: Tremors (negative) and Other (Drowsy although easily arousable and answering questions appropriately)
Skin: Warm and Dry
General: Respiratory Distress (negative), Comfortable, Fever (negative) and Chills (negative)
Assessment
-
Assessment: 54-year-old male with a past medical history of multivessel CAD, history of tobacco use, Peyronie's disease, family history of CAD, hypercholesterolemia, psoriasis, and history of COVID-19 (04/2023) who presents for elective CABG.
Patient known to CT surgery service with last visit on 04/01/[address] Lockwood. Patient underwent a left heart catheterization on 03/28/2025 due to high risk chest pain, and this showed multivessel disease involving the proximal/mid LAD, proximal
margin of the OM1, ostium/proximal RCA and mid RCA. There was normal filling pressures seen with LVEDP 9 mmHg. Patient does exercise 3 times a week with weightlifting and light cardio. Discussion held with the patient and surgical
revascularization was recommended and he agreed to this. On 04/05/2025, patient underwent multi arterial CABG + left atrial appendage exclusion with a 35 mm clip. Patient underwent procedure with no immediate complications and was transferred to
CVICU postoperatively for further care. Manager Credit Collections service consulted for additional management/recommendations.
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
Impression:
#MV CAD s/p multi-arterial CABG x 3 (In situ CARDONA to LAD, Ao to radial to bifurcating OM, Ao to RSVG to RPDA) + left atrial appendage exclusion with 35mm clip � POD #0
#Hypocalcemia
#Family history of CAD
#Former tobacco smoker
#Hypertension/hyperlipidemia
#Psoriasis
#History of COVID-19 (April 2023)
Plan:
Patient already extubated and is currently breathing comfortably on 6 L/min nasal cannula, saturating 94%
Continue to wean down supplemental O2 well-maintained SpO2 >90-94%
prn nebulized bronchodilators - not currently bronchospastic
Encourage incentive spirometer use q1hr while awake
Pulmonary artery catheter parameters will be followed
Pressors/antihypertensive/inotropes/diuretics will be provided as needed
Maintain MAP>65
Replete electrolytes with K>4, Mg>2
Monitor chest tube output (bilateral pleural chest tubes and mediastinal chest tubes x 2)
Monitor hemoglobin
Monitor platelet count and coags
Transfuse blood products as needed to maintain Hb>7g/dL, plt>50k (given post-operative status)
CT surgery managing chest tubes
Monitor blood sugar to maintain euglycemia with goal BG 110-140
Insulin drip per protocol
Aspiration precautions
DVT prophylaxis
Early nutrition
Early mobilization
Critical care statement: A total of 42 minutes of critical care time was provided for this patient today. This includes management of ventilator, spontaneous breathing trial, arterial blood gases, pressors, of unstable vital signs, evaluation of the
patient at bedside, reviewing the patient's pertinent medical records including radiographs, microbiology, laboratory evaluations, and discussion with primary team and critical care nursing.
[2025-04-05 11:39] LABS: Glucose - Point of Care 149 mg/dl (70-99)
[2025-04-05 11:52] LABS: B.E. -0.6 mmol/L; HCO3 24.9 mmol/L (21-28); O2 Saturation % 98.8 % (94-98); PCO2 43 mmHg (35-48); PO2 137 mmHg (83-108); Potassium 4.2 mMOL/L (3.5-5.1); Sodium 133 mMOL/L (136-145)
--- NOTE | 2025-04-05 11:54 | W.PN.UPDATE ---
Update Note
Progress Note Update
54-year-old male was electively admitted on 04/05/2025 for CABG due to exertional chest pain and triple-vessel coronary disease noted on left heart cath.
IV fluids: 1200
U.O.:� 600
Blood:� none
Wires:� V-wires
Drips: Cardene@ 2.5, Levo @ 2, Precedex @ 0.5, Insulin
�
NEURO: sedated, pupils +2mm B/L
RESP: #8OT @26cm> 500/40%/14/5. Lungs clear B/L. 2 mediastinal (5cc on arrival) and R/L pleural (0cc on arrival) chest tubes to -20cm suction. Sanguineous drainage
CV: RRR +S1, S2, no S3, no�rub, no murmur. Dermabond to median sternotomy. RIJ w/Slik intact; CVP 6
ABD: round, soft, no BS
EXT: no edema, +2/4 DP pulses B/L, no femoral bruit, RLE and LUE ANDRÉS wrap intact; right radial A-line intact
: Lu with clear yellow urine
�
A/P: POD #0 s/p CABG x 3 (CARDONA to LAD, radial to bifurcating OM, SVG to RPDA), Left atrial appendage exclusion (#35mm clip)
ZULEIKA: report pending�
- wean and extubate
- maintain SBP 90-130mmHg
- Cardene IV, transition to Norvasc POD #1 as BP/HR permit
# CAD
- will require ASA, Plavix, statin (Crestor), beta-grzegorz
- Ca+ grzegorz for radial patency
�
# acute surgical blood loss anemia-expected
- trend CBC
�
# Current tobacco
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
- assess need for Nicotine patch
�
# Pyronie's disease
- no difficulty w/Lu insertion
�
[2025-04-05] MEDS: DILAUDID 0.5 MG IV ×3 (12:03→22:50)
[2025-04-05 12:04] LABS: INR 1.28; PT 16.1 Sec (11.4-14.6)
[2025-04-05 12:05] LABS: APTT 33.8 Sec (23.4-35.0)
[2025-04-05 12:06] LABS: Hematocrit 39.9 % (39.0-52.0); Hemoglobin 13.8 g/dL (13.0-18.0); Platelet Count 193 10^3/uL (130-400)
[2025-04-05 12:07] LABS: Blood Urea Nitrogen 16 mg/dl (9-20); Estimated Creatinine Clearance 87 ml/min; Glucose 135 mg/dl (70-99); Magnesium 2.6 mg/dl (1.6-2.3)
[2025-04-05] MEDS: VERSED 0.5 MG IV ×2 (12:07→12:59)
[2025-04-05] MEDS: CRESTOR PO (12:08)
[2025-04-05] MEDS: NSS 500 IV (12:08)
[2025-04-05] MEDS: NEURONTIN PO ×2 (12:08→15:15)
[2025-04-05] MEDS: ANCEF 10 IV ×2 (12:08)
[2025-04-05] MEDS: NORVASC PO (12:09)
[2025-04-05] MEDS: CALCIUM GLUCONATE 100 IV (12:19)
[2025-04-05 12:20] LABS: Glucose - Point of Care 116 mg/dl (70-99)
--- NOTE | 2025-04-05 12:37 | PTCARENOTE ---
Pt arrived from CV[facility] to CVICU at 1130. Pt is intubated and sedated. Pt currently SR with HR 64. BP 102/56 MAP 70. CVP 10. Epicardial V wire in place, currently off. #8ET tube in place at 24cm at right lip. Vent set to SIMV 40% FiO2, rate 16, TV 500,
PEEP 5, pressure support 5. Pulse oximetry 99%. Oral care completed. Mediastinal chest tubes x2 and left/right pleural chest tubes in place to -20 suction, no sign of air leak or crepitus, drainage red in color. Bowel sounds hypoactive. Lu
catheter in place, draining yellow urine. Lu care completed. Midsternal incision approximated and MATERIAL MANAGER. Left arm incision with joseph wrap in place. Right leg incision with joseph wrap in place. Right groin puncture approximated with surgical adhesive.
Brachial and pedal pulses palpable. Right IJ cordis and SLIC intact. Right radial Kelsy in place. Pt currently on Levo at 2mcg/min, Cardene 2.5mg/hr, Precedex 0.5mcg/kg/hr, Insulin per glycemic protocol at 2.3units/hr. Post-op x-ray and EKG
obtained. Labs collected and reviewed, calcium being replaced.
--- NOTE | 2025-04-05 12:38 | PTCARENOTE ---
Pt with small red rash around sternal incision. Anesthesia at bedside, reported rash occurred during procedure and Benadryl was administered.
[2025-04-05 13:06] LABS: Glucose - Point of Care 117 mg/dl (70-99)
[2025-04-05 13:34] LABS: B.E. - POC -4.1 mmol/L; Blood Urea Nitrogen - POC 16 mg/dl (3-120); Chloride - POC 109 mmol/L (96-111); Creatinine - POC 1.11 mg/dl (0.3-1.0); Glucose - POC 139 mg/dl (70-99); HCO3 - POC 24 mmol/L (21-28); Hematocrit - POC 42 % PCV (42-52); Hemodilution- POC No; Hemoglobin Calculated - POC 14.3; Ionized Calcium - POC 1.40 mmol/L (1.15-1.33); Lactate - POC 3.43 mmol/L (0.36-0.75); O2 Saturation %Calculated-POC 94.8 % (94-98); PCO2 - POC 58 mmHg (35-48); PO2 - POC 90 mmHg (83-108); Potassium - POC 4.1 mmol/L (3.5-5.1); Sodium - POC 139 mmol/L (136-145); Specimen Type - POC Arterial; pH - POC 7.23 (7.35-7.45)
--- NOTE | 2025-04-05 13:38 | RESPNOTE ---
Patient extubated to 6 liter NC without incident-95%
GASTROENTEROLOGY PROFESSOR. RN and MD all bedside for extubation
[2025-04-05 13:56] LABS: B.E. -3.7 mmol/L; HCO3 23.9 mmol/L (21-28); O2 Saturation % 97.7 % (94-98); PCO2 52 mmHg (35-48); PO2 95 mmHg (83-108); Potassium 4.3 mMOL/L (3.5-5.1); Sodium 136 mMOL/L (136-145)
[2025-04-05 14:05] LABS: Glucose - Point of Care 100 mg/dl (70-99)
[2025-04-05] MEDS: OFIRMEV 100 IV (14:21)
[2025-04-05 14:39] LABS: ACT+ - POC 151 Seconds (82-134)
--- NOTE | 2025-04-05 14:43 | W.PN.CD ---
Today's Communication / Plan
-
wean vent
ASA/statin
Impression / Plan
-
54 yo male with newly diagnosed severe CAD, hyperlipidemia, tobacco abuse underwent CABG x 3 (CARDONA to LAD, radial to bifurcating OM, SVG to RPDA), Left atrial appendage exclusion (#35mm clip) today.
# Severe CAD
-s/p CABG
-EKG and tele with NSR
-ZULEIKA: EF 55-60%, no sig valve disease
-weaning from vent and IV drips
-ASA/statin
# Hyperlipidemia
-check lipids, goal LDL under 55
-cont rosuvastatin 20mg daily
# Tobacco abuse
-quit earlier this month
Physical Exam
Vital Signs/Labs
Vital Signs
Temp Pulse Resp BP Pulse Ox
98.6 F 70 15 122/87 94
04/05/25 14:00 04/05/25 14:00 04/05/25 14:00 04/05/25 06:15 04/05/25 14:00
04/04/25 04/05/25 04/06/25
06:59 06:59 06:59
Actual Weight 77.8 kg
04/05/25 11:32
PT 16.1 Sec (11.4-14.6) H 04/05/25 11:32
INR 1.28 04/05/25 11:32
APTT 33.8 Sec (23.4-35.0) 04/05/25 11:32
Magnesium 2.6 mg/dl (1.6-2.3) H 04/05/25 11:32
Physical Exam
EENT: Moist mucous membranes
Cardiovascular: Rhythm & rate is regular, Pedal edema is absent, JVD pressure is normal and Systolic murmur absent
Respiratory: Other (mechanical vent)
Data Reviewed
-
Date of Service: April 05, 2025
EKG: Tracing Personally Visualized and interpreted (NSR)
Medical Tests (PFT, Pathology etc): Report Reviewed by me (ZULEIKA: EF 55-60%)
Labs: Labs Reviewed by me
[2025-04-05] MEDS: TYLENOL PO (14:55)
[2025-04-05] MEDS: PACERONE PO (15:15)
[2025-04-05 15:30] LABS: Glucose - Point of Care 138 mg/dl (70-99)
--- NOTE | 2025-04-05 15:30 | PTCARENOTE ---
Pt awoke agitated and extremely restless. PRN Versed administered. CT YOU, Madonna, at bedside. Contacted respiratory therapist to change pt to trial CPAP. Pt tolerated CPAP for about 30 minutes before becoming agitated again. Pt was able to follow
commands. CT YOU, Madonna, and Dr. Mckeon at bedside. Respiratory therapist at bedside to extubate pt. Extubated at 1330 to 6L nasal cannula. Repeat ABG collected and reviewed.
[2025-04-05 15:42] LABS: B.E. -0.2 mmol/L; HCO3 24.8 mmol/L (21-28); O2 Saturation % 98.4 % (94-98); PCO2 41 mmHg (35-48); PO2 135 mmHg (83-108)
[2025-04-05 15:45] LABS: Hematocrit 40.3 % (39.0-52.0); Hemoglobin 14.3 g/dL (13.0-18.0); Platelet Count 206 10^3/uL (130-400)
[2025-04-05 16:18] LABS: Glucose - Point of Care 123 mg/dl (70-99)
[2025-04-05] MEDS: ROXICODONE 5 MG PO ×2 (16:27→20:26)
[2025-04-05] MEDS: LOW STRENGTH ASPIRIN 81 MG PO (16:27)
[2025-04-05] MEDS: ANCEF 5 IV (17:24)
[2025-04-05 18:27] LABS: Glucose - Point of Care 91 mg/dl (70-99)
--- NOTE | 2025-04-05 20:02 | PTCARENOTE ---
Assumed care of patient from prior Shift RN at 1900. Pt alert and oriented,SR on monitor with HR 68. On Cardene 2.5 mg/hr CVP 8-14. Epicardial V wire in place, currently off. rachial and pedal pulses palpable. RIJ cordis and SLIC in place,Kelsy
right rad in place. Lungs clear and diminished , On 2 LC NC with pulse oximetry 99%. 4 Chest tubes , Mediastinal x2 and left/right pleural tubes in place set to -20 suction, no air leak or crepitus noted, draining red output. Bowel sounds
hyperactive. Lu catheter in place, draining yellow urine. Lu care completed, and chg bath done . Midsternal incision approximated and TALA. Left arm incision site is wrap with joseph wrap. Right leg incision with joseph wrap in place. Right groin
puncture closed with with surgical adhesive. Pulses palpable. Insulin per glycemic protocol. Assessment in workflow see for details.
[2025-04-05 20:14] LABS: Glucose - Point of Care 117 mg/dl (70-99)
[2025-04-05] MEDS: SENOKOT 8.6 MG PO (20:26)
[2025-04-05] MEDS: FLEXERIL 5 MG PO (20:26)
[2025-04-05] MEDS: NEURONTIN 100 MG PO (22:15)
[2025-04-05] MEDS: TYLENOL 975 MG PO (22:15)
[2025-04-05] MEDS: PACERONE 200 MG PO (22:15)
[2025-04-05] MEDS: NORVASC 2.5 MG PO (22:15)
[2025-04-05 22:25] LABS: Glucose - Point of Care 97 mg/dl (70-99)
[2025-04-05] MEDS: MUCINEX 600 MG PO (22:50)
[2025-04-06] VITALS (28 sets, daily range): BP systolic 95–122; BP diastolic 53–80; PULSE 74; O2SAT 98–99; BMI 28.3
[2025-04-06 00:11] LABS: Glucose - Point of Care 105 mg/dl (70-99)
--- NOTE | 2025-04-06 00:53 | PTCARENOTE ---
Cardene infusion stop Norvasc given , 250 LR bolus given. Patient vitals stable, NSR on monitor, 100% on 2 L NC. Pain controlled, resting comfortably. assessment remains unchanged.
[2025-04-06 02:13] LABS: Glucose - Point of Care 75 mg/dl (70-99)
[2025-04-06] MEDS: ANCEF 5 IV ×2 (03:04→11:17)
[2025-04-06 03:44] LABS: Hematocrit 36.5 % (39.0-52.0); Hemoglobin 12.7 g/dL (13.0-18.0); Mean Corp Hgb Conc. 34.8 g/dL (33.0-37.0); Mean Corpuscular Volume 90.3 fL (80.0-94.0); Platelet Count 212 10^3/uL (130-400); Red Cell Dist. Width 12.9 % (11.5-14.5)
--- NOTE | 2025-04-06 03:54 | PTCARENOTE ---
BP Labile. restarted levophed. NSR, pain controlled.
[2025-04-06 04:07] LABS: Blood Urea Nitrogen 20 mg/dl (9-20); Calcium 8.7 mg/dl (8.4-10.2); Carbon Dioxide 24 mmol/L (22-30); Chloride 103 mmol/L (98-107); Estimated Creatinine Clearance 87 ml/min; Glucose 92 mg/dl (70-99); HDL Cholesterol 38 mg/dl; LDL Cholesterol, Calculated 53 mg/dl; Magnesium 1.8 mg/dl (1.6-2.3); Potassium 4.5 mmol/L (3.5-5.1); Sodium 132 mmol/L (135-145); Very Low Density Lipoprotein 21 mg/dl (0-30); eGFR > 60.00
[2025-04-06 04:10] LABS: Glucose - Point of Care 97 mg/dl (70-99)
--- NOTE | 2025-04-06 04:28 | W.PN.CT ---
Addendum entered and electronically signed by Killian Mckeon MD 04/06/25 08:43:
I saw and examined the patient.
The PA's note was reviewed and I agree with the note.
Comment:
POD#1 CABG x 3 w/ RA, ELAA
No issues overnight. Off gtts. De-lined
Norvasc PO started
Maintain CTs today
D/C jackson
OOB/IS/ambulate later
Original Note:
Today's Communication / Plan
-
-pod #1
-no significant issues overnight
-Tm 100.7 - encourage IS, started Mucinex
-per AT, gave 2.5 mg Norvasc last night and weaned off Cardene
-drips: insulin, Levo 5
-CT outputs: 2 meds 120/230, 2 pleur 130/240 in 12/24 hrs
-LR 500 overnight
-a-line is positional
-wean off Levo, then deline
-? d/c Jackson (has Peyronie's dz)
-d/c insulin
-current meds (ASA, Plavix, Crestor, Amio, Norvasc for radial graft, iv iron, Gabapentin, Protonix). Will hold Lopressor while on Levo
-encourage OOB
Assessment / Plan
-
- Multivessel Coronary Artery Disease with unstable angina- s/p Multi Arterial Coronary artery bypass grafting x 3 (In situ CARDONA to LAD, Ao to radial to bifurcating OM, Ao to RSVG to RPDA); Left atrial appendage exclusion (35mm clip); Rigid sternal
fixation with plates and sternal wires (2 gold plates with 8 x 14mm screws) by Dr. Lockwood on 04/05/25, pod #1
- Intraop ZULEIKA: LVEF preop and postop was 60% with no wma. There was a short period while packing the chest for sternal wire placement where he developed ST changes and some hypotension, suspected radial artery spasm. The padding was placed along
the radial artery graft with immediate resolution of the ST segment elevation. Repeat transesophageal echo revealed no significant regional wall motion abnormalities or any changes from preoperative studies. His left atrial appendage was verified
be free of any thrombus or debris preoperatively and found to be totally occlusive postoperatively with 35mm clip
- Unstable angina in the setting of multivessel coronary artery disease
- Recent smoking history- quit earlier this month
- Family history of CAD
- Hyperlipidemia
- Hypertension
- Psoriasis
- Acute postop blood loss anemia
- Acute postop atelectasis
- Acute postop hypovolemia with subsequent hypervolemia
- Acute postop hyponatremia
- Actue suspected postop pericarditis/+rub
Discussed patient care with: Nursing and Care Team
Subjective
-
Date of Service: April 06, 2025
Objective Data
-
PT 16.1 Sec (11.4-14.6) H 04/05/25 11:32
INR 1.28 04/05/25 11:32
APTT 33.8 Sec (23.4-35.0) 04/05/25 11:32
Vital Signs
Vital Signs
Temp Pulse Resp BP Pulse Ox
99.9 F 70 15 100/56 99
04/06/25 00:00 04/06/25 00:10 04/06/25 00:10 04/06/25 00:00 04/06/25 00:10
CT Intake/Output/Weight
04/05/25 04/05/25 04/06/25
06:59 18:59 06:59
Intake Total 515.0 / 985.7 470.7 / 985.7
Output Total 670 / 1010 340 / 1010
Balance -155.0 / -24.3 130.7 / -24.3
SaO2: 99
Physical Exam
-
General: Awake and AOx3
Cardiovascular: Regular rate & rhythm, No Murmurs and Rub
Respiratory: Decreased Breath Sounds
Sternum: Stable
Incision: Clean, Dry and Intact
Extremities: No Edema
Abdomen: soft, nontender, nondistended, + bowel sounds
Data Reviewed
-
Lab Results: Results Reviewed
Medications: Active Meds Reviewed
Chest X-Ray: Report Reviewed and Image Reviewed
ECG: Report Reviewed and Image Reviewed
[2025-04-06 05:48] LABS: Glucose - Point of Care 100 mg/dl (70-99)
[2025-04-06] MEDS: ROXICODONE 5 MG PO ×3 (06:05→15:57)
[2025-04-06] MEDS: TYLENOL 975 MG PO ×3 (06:05→21:08)
[2025-04-06 07:14] LABS: Glucose - Point of Care 111 mg/dl (70-99)
--- NOTE | 2025-04-06 08:28 | W.PN.INTV ---
Today's Communication / Plan
Recommendations
Post-op management per CT surgery
Goal BG 110-140
Removal of chest tubes per CT surgery team
Pain control
Monitor numbness/pain in left thumb - may need gabapentin if numbness interferes with sleep
Encourage IS
Pt downgraded to CVICU-telemetry. No additional recommendations at this time. Napper Runner/Pulmonary service will now sign off. Please reconsult if there are any additional questions/concerns, or if patient's respiratory status deteriorates.
Assessment
-
Assessment: 54-year-old male with a past medical history of multivessel CAD, history of tobacco use, Peyronie's disease, family history of CAD, hypercholesterolemia, psoriasis, and history of COVID-19 (04/2023) who presents for elective CABG.
Patient known to CT surgery service with last visit on 04/01/[address] Lockwood. Patient underwent a left heart catheterization on 03/28/2025 due to high risk chest pain, and this showed multivessel disease involving the proximal/mid LAD, proximal
margin of the OM1, ostium/proximal RCA and mid RCA. There was normal filling pressures seen with LVEDP 9 mmHg. Patient does exercise 3 times a week with weightlifting and light cardio. Discussion held with the patient and surgical
revascularization was recommended and he agreed to this. On 04/05/2025, patient underwent multi arterial CABG + left atrial appendage exclusion with a 35 mm clip. Patient underwent procedure with no immediate complications and was transferred to
CVICU postoperatively for further care. Napper Runner service consulted for additional management/recommendations.
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
Impression:
#MV CAD s/p multi-arterial CABG x 3 (In situ CARDONA to LAD, Ao to radial to bifurcating OM, Ao to RSVG to RPDA) + left atrial appendage exclusion with 35mm clip � POD #1
#Hypocalcemia - resolved
#Family history of CAD
#Former tobacco smoker
#Hypertension/hyperlipidemia
#Psoriasis
#History of COVID-19 (April 2023)
Plan:
Patient extubated and is currently breathing comfortably on room air from 6 L/min nasal cannula yesterday - saturating 94%
Keep SpO2 >90-94%
prn nebulized bronchodilators - not currently bronchospastic
Encourage incentive spirometer use q1hr while awake
Pressors/antihypertensive/inotropes/diuretics will be provided as needed
Maintain MAP>65
Replete electrolytes with K>4, Mg>2
Monitor chest tube output (bilateral pleural chest tubes and mediastinal chest tubes x 2)
Monitor hemoglobin
Monitor platelet count and coags
Transfuse blood products as needed to maintain Hb>7g/dL, plt>50k (given post-operative status)
CT surgery managing chest tubes
Monitor blood sugar to maintain euglycemia with goal BG 110-140
Insulin drip per protocol - now off insulin gtt, and rec'd to use ISS to keep BG at goal as above
Aspiration precautions
DVT prophylaxis
Early nutrition
Early mobilization
Pt downgraded to CVICU-telemetry. No additional recommendations at this time. Napper Runner/Pulmonary service will now sign off. Thank you for allowing us to be involved in the care of this patient. Please reconsult if there are any additional
questions/concerns, or if patient's respiratory status deteriorates.
Total time spent today was 57 minutes for this encounter. Time includes reviewing laboratory test/imaging results, reviewing pertinent medical records, obtaining and reviewing medical history, performing an appropriate exam, ordering medications,
tests and procedures. Time also includes documentation of this encounter, coordinating patient care and communicating with other healthcare professionals. Total time does not include separately billed tests performed on this date of service.
Subjective Dataa
Subjective Data
Date of Service:
Date of Service: April 06, 2025
Chief Complaint: Napper Runner Follow Up
Subjective:
Pt seen and evaluated this AM. Endorses left thumb numbness. On room air breathing comfortably. , Kelly, at bedside. HR 76. Chest tubes x 4 at bedside.
Review of Systems
General: Other (Negative unless mentioned above)
Objective Data
Data Reviewed
Vital Signs / I&O / Oxygen:
Vital Signs
Temp Pulse Resp BP Pulse Ox
98.9 F 76 16 116/57 92
04/06/25 11:25 04/06/25 11:25 04/06/25 11:25 04/06/25 11:25 04/06/25 11:25
Intake and Output
04/05/25 04/06/25 04/07/25
06:59 06:59 06:59
Intake Total 1417.6 / 1438.3 43.1 / 43.1
Output Total 1355 / 1435 270 / 270
Balance 62.6 / 3.3 -226.9 / -226.9
SaO2 [CPAP] 95
SaO2 [SIMV] 98
SaO2 92
Nasal Cannula flow liters per 2
minute
Physical Exam
General: Respiratory Distress (negative), Comfortable, Chills (negative) and Sweats (negative)
HEENT: Normocephalic and Anicteric
Cardiovascular: S1-S2, Rub (positive) and Peripheral Edema (negative)
Respiratory: Wheeze (negative), Rhonchi (negative), Stridor (negative), Chest Tube (bilateral pleural chest tubes and mediastinal chest tubes x2) and Other (coarse BS bilaterally)
GI: Soft, Non Distended, Non Tender and Normal Bowel Sounds
Neurology: Awake, Alert and Tremors (negative)
Skin: Warm, Dry, Cyanosis (negative) and Jaundice (negative)
Labs/Micro/Reports
Lab Data
04/06/25 03:10
04/06/25 03:10
Laboratory Results
04/05/25 04/05/25
13:34 15:25
pH 7.27 L 7.39
pCO2 52 H 41
pO2 95 135 H
HCO3 23.9 24.8
O2 Delivery Level Not Reportable
Microbiology
04/02/25 08:38 Nose MRSA Screen - Final
No Methicillin Resistant Staphylococcus aureus isolated.
[2025-04-06] MEDS: MUCINEX 600 MG PO ×2 (08:36→19:29)
[2025-04-06] MEDS: PACERONE 200 MG PO ×3 (08:36→21:08)
[2025-04-06] MEDS: CRESTOR 20 MG PO (08:36)
[2025-04-06] MEDS: LIDOCAINE 4% PATCH 1 PATCH TOPICAL (08:36)
[2025-04-06] MEDS: NORVASC 2.5 MG PO (08:36)
[2025-04-06] MEDS: MAGNESIUM OXIDE 400 MG PO ×2 (08:36→19:29)
[2025-04-06] MEDS: SENOKOT 8.6 MG PO ×2 (08:37→19:29)
[2025-04-06] MEDS: BACTROBAN 2% OINTMENT 1 APPLIC NASAL ×2 (08:37→19:33)
[2025-04-06] MEDS: NEURONTIN 100 MG PO ×3 (08:37→21:08)
[2025-04-06] MEDS: LOW STRENGTH ASPIRIN 81 MG PO (08:37)
[2025-04-06] MEDS: PROTONIX 40 MG PO (08:37)
[2025-04-06] MEDS: PLAVIX 75 MG PO (08:37)
--- NOTE | 2025-04-06 08:52 | PTCARENOTE ---
assumed care of pt from previous shift RN, sinus rhythm on tele, epicardial V wire insulated. Kelsy removed. VSS, lungs diminished, coughing and deep breathing encouraged. +bs, tolerating PO intake, jackson removed, DTV. PIV and cordis flush easily.
Surgical sites stable. CT x4 w red drainage. Pt assisted from bed to chair with minimal assistance. Plan of care reviewed and questions encouraged.
[2025-04-06 10:06] LABS: Glucose - Point of Care 120 mg/dl (70-99)
--- NOTE | 2025-04-06 10:41 | W.PN.CD ---
Today's Communication / Plan
-
ASA/statin
tele
Impression / Plan
-
54 yo male with newly diagnosed severe CAD, hyperlipidemia, tobacco abuse underwent CABG x 3 (CARDONA to LAD, radial to bifurcating OM, SVG to RPDA), Left atrial appendage exclusion (#35mm clip) today.
# Severe CAD
-s/p CABG 04/05
-EKG and tele with NSR
-ZULEIKA: EF 55-60%, no sig valve disease
-ASA/statin
# Abnormal EKG
-c/w pericarditis; +rub on exam
-no chest pain
-monitor
# Hyperlipidemia
- goal LDL under 55: LDL is 53
-cont rosuvastatin 20mg daily
# Tobacco abuse
-quit earlier this month
Physical Exam
Vital Signs/Labs
Vital Signs
Temp Pulse Resp BP Pulse Ox
100 F 76 16 115/69 93
04/06/25 10:00 04/06/25 10:00 04/06/25 10:00 04/06/25 09:39 04/06/25 10:00
04/05/25 04/06/25 04/07/25
06:59 06:59 06:59
Actual Weight 77.8 kg 82 kg
04/06/25 03:10
04/06/25 03:10
PT 16.1 Sec (11.4-14.6) H 04/05/25 11:32
INR 1.28 04/05/25 11:32
APTT 33.8 Sec (23.4-35.0) 04/05/25 11:32
Magnesium 1.8 mg/dl (1.6-2.3) 04/06/25 03:10
Triglycerides 105 mg/dl (10-149) 04/06/25 03:10
LDL Cholesterol, Calc 53 mg/dl 04/06/25 03:10
VLDL Cholesterol, Calc 21 mg/dl (0-30) 04/06/25 03:10
HDL Cholesterol 38 mg/dl 04/06/25 03:10
Physical Exam
Constitutional: No acute distress and Comfortable
EENT: Moist mucous membranes
Cardiovascular: Rhythm & rate is regular, Pedal edema is absent, JVD pressure is normal and Rub present
Respiratory: Respiratory effort normal and Lungs clear to auscul.
Neuro/Psych: AO x 3
Data Reviewed
-
Date of Service: April 06, 2025
EKG: Other (Tele: NSR)
Labs: Labs Reviewed by me
[2025-04-06] MEDS: NSS IV (11:56)
--- NOTE | 2025-04-06 11:56 | PTCARENOTE ---
glycemic discontinued as ordered. Pt medicated for pain.
[2025-04-06] MEDS: FERRLECIT 110 MG IV (13:08)
[2025-04-06] MEDS: DILAUDID 0.5 MG IV (13:08)
--- NOTE | 2025-04-06 15:33 | PTCARENOTE ---
Patient received from Becky RN; AAOx3, responds spontaneously and follows commands; VSS; NSR on monitor; Friction rub present; Epicardial V-wire insulated; +2 right radial, left ulnar, and DP pulses; Shallow respirations; SpO2 91-96%; CTx4 connected
to -20 cm wall suction draining serosanguineous drainage - no air leak, tidaling, or crepitus noted; +BS; Patient urinated small amount of clear, yellow urine following following jackson removal; Surgical sites intact; PIVx1 - #20 right hand; RIJ
Cordis with KVO infusing; See nursing documentation for further information
[2025-04-06] MEDS: DILAUDID 0.25 MG IV (19:24)
[2025-04-06] MEDS: LOPRESSOR 12.5 MG PO (19:29)
[2025-04-06] MEDS: REMOVE LIDOCAINE PATCH 1 PATCH REMOVE (19:30)
--- NOTE | 2025-04-06 19:55 | PTCARENOTE ---
Patient received from RN @ 1900. Patient lying in bed w/ call chacko in reach. Patient states pain is 6/10. See MAR for details. AOx3. SR on monitor. BP 110/61 HR 77. Heart sounds audible w/ rub. V-wires insulated. Right radial, left ulnar,
and pedal pulses present. Lungs diminished in bases bilaterally. POX 93% 2L NC. 2x med and R/L pleural CT set to -20 suction draining serosanguineous fluid. No crepitus, tidaling, or air leaks noted. Bowel sounds hypoactive. Voiding clear
yellow urine. Sternal incision well approximated BAG MENDER. Right knee incision and right groin puncture well approximated TALA. Left radial graft site well approximated TALA. RIJ cordis w/slicc and PIV patent and intact. See worklist for more details.
--- NOTE | 2025-04-06 19:55 | PTCARENOTE ---
Patient received from RN @ 1900. Patient lying in bed w/ call chacko inj reach. Patient states pain is 6/10. See MAR for details. AOx3. SR on monitor. BP 110/61 HR 77. Heart sounds audible w/ rub. V-wires insulated. Right radial, left ulnar,
and pedal pulses present. Lungs diminished in bases bilaterally. POX 93% 2L NC. 2x med and R/L pleural CT set to -20 suction draining serosanguineous fluid. No crepitus, tidaling, or air leaks noted. Bowel sounds hypoactive. Voiding clear
yellow urine. Sternal incision well approximated TALA. Right knee incision and right groin puncture well approximated FORMING ACID DUMPER. Left radial graft site well approximated FORMING ACID DUMPER. RIJ cordis and PIV patent and intact. See worklist for more details.
[2025-04-06] MEDS: TORADOL 15 MG IV (21:08)
[2025-04-07] VITALS (13 sets, daily range): BP systolic 94–126; BP diastolic 51–78; BMI 28.2
[2025-04-07] MEDS: ROXICODONE 5 MG PO ×3 (00:20→22:36)
--- NOTE | 2025-04-07 00:25 | PTCARENOTE ---
Patient reassessed. Patient states pain is 5/10. See MAR for details. SR on monitor. BP 98/54 HR 70 POX 93% 2L NC.
[2025-04-07] MEDS: DILAUDID 0.5 MG IV (05:21)
[2025-04-07] MEDS: TYLENOL 975 MG PO ×3 (05:22→22:36)
--- NOTE | 2025-04-07 05:31 | PTCARENOTE ---
Patient reassessed. Labs drawn. SLICC removed per CT LOKI Nguyen SR on monitor. VSS
[2025-04-07 05:41] LABS: Blood Urea Nitrogen 21 mg/dl (9-20); Calcium 8.5 mg/dl (8.4-10.2); Carbon Dioxide 28 mmol/L (22-30); Chloride 98 mmol/L (98-107); Estimated Creatinine Clearance 87 ml/min; Glucose 107 mg/dl (70-99); Magnesium 1.9 mg/dl (1.6-2.3); Potassium 4.2 mmol/L (3.5-5.1); Sodium 130 mmol/L (135-145); eGFR > 60.00
[2025-04-07 05:46] LABS: Hematocrit 32.7 % (39.0-52.0); Hemoglobin 11.3 g/dL (13.0-18.0); Mean Corp Hgb Conc. 34.6 g/dL (33.0-37.0); Mean Corpuscular Volume 89.8 fL (80.0-94.0); Platelet Count 157 10^3/uL (130-400); Red Cell Dist. Width 13.0 % (11.5-14.5)
--- NOTE | 2025-04-07 06:15 | W.PN.CT ---
Addendum entered and electronically signed by Killian Mckeon MD 04/07/25 10:47:
I saw and examined the patient.
The PA's note was reviewed and I agree with the note.
Comment:
POD#2 s/p CABG x 3, ELAA
No issues
D/C CTs, pacing wires
Continue Norvasc, ASA, plavix, BB, statin
D/C planning for 1-2 days
Original Note:
Today's Communication / Plan
-
-pod #2
-no significant issues overnight
-CT outputs: 2 meds 85/220 cc, 2 pleur 50/175 cc in 12/24 hrs
-NSR, BP soft, received Norvasc yesterday
-current meds (ASA, Plavix, Crestor, Amio, Norvasc for radial graft, iv iron, Gabapentin, Protonix).
-encourage OOB, still on 2 L NC
Assessment / Plan
-
- Multivessel Coronary Artery Disease with unstable angina- s/p Multi Arterial Coronary artery bypass grafting x 3 (In situ CARDONA to LAD, Ao to radial to bifurcating OM, Ao to RSVG to RPDA); Left atrial appendage exclusion (35mm clip); Rigid sternal
fixation with plates and sternal wires (2 gold plates with 8 x 14mm screws) by Dr. Lockwood on 04/05/25, pod #2
- Intraop ZULEIKA: LVEF preop and postop was 60% with no wma. There was a short period while packing the chest for sternal wire placement where he developed ST changes and some hypotension, suspected radial artery spasm. The padding was placed along
the radial artery graft with immediate resolution of the ST segment elevation. Repeat transesophageal echo revealed no significant regional wall motion abnormalities or any changes from preoperative studies. His left atrial appendage was verified
be free of any thrombus or debris preoperatively and found to be totally occlusive postoperatively with 35mm clip
- Unstable angina in the setting of multivessel coronary artery disease
- Recent smoking history- quit earlier this month
- Family history of CAD
- Hyperlipidemia
- Hypertension
- Psoriasis
- Acute postop blood loss anemia
- Acute postop atelectasis
- Acute postop hypovolemia with subsequent hypervolemia
- Acute postop hyponatremia
- Actue suspected postop pericarditis/+rub
Subjective
-
Date of Service: April 07, 2025
Objective Data
-
Lab Results
04/07/25 04:58
04/07/25 04:58
PT 16.1 Sec (11.4-14.6) H 04/05/25 11:32
INR 1.28 04/05/25 11:32
APTT 33.8 Sec (23.4-35.0) 04/05/25 11:32
Vital Signs
Vital Signs
Temp Pulse Resp BP Pulse Ox
98.5 F 69 16 98/56 92
04/07/25 05:26 04/07/25 05:00 04/07/25 05:26 04/07/25 04:54 04/07/25 05:26
CT Intake/Output/Weight
04/06/25 04/06/25 04/07/25
06:59 18:59 06:59
Intake Total 902.6 / 1438.3 703.1 / 703.1
Output Total 685 / 1435 800 / 1460 660 / 1460
Balance 217.6 / 3.3 -96.9 / -756.9 -660 / -756.9
SaO2: 92
Physical Exam
-
General: Awake and Oriented
Cardiovascular: Regular rate & rhythm and Rub
Respiratory: Clear
Sternum: Stable
Incision: Clean, Dry and Intact
Extremities: No Edema and No Erythema
Data Reviewed
-
Lab Results: Results Reviewed
Medications: Active Meds Reviewed
Chest X-Ray: Report Reviewed
ECG: Report Reviewed
--- NOTE | 2025-04-07 08:53 | PTCARENOTE ---
assumed care of pt from previous shift RN, sinus rhythm on tele, epicardial pacing wire pulled by CT YOU. Lungs diminished, pox 97% on 2L NC. +BS, tolerating PO intake, voids spontaneously. Right IJ cordis and PIV flush easily, CTs to be removed.
Plan of care reviewed w the pt and questions encouraged.
--- NOTE | 2025-04-07 08:58 | W.PN.CD ---
Today's Communication / Plan
-
cont ASA, statin
tele
Impression / Plan
-
54 yo male with newly diagnosed severe CAD, hyperlipidemia, tobacco abuse underwent CABG x 3 (CARDONA to LAD, radial to bifurcating OM, SVG to RPDA), Left atrial appendage exclusion (#35mm clip) today.
# Severe CAD
-s/p CABG 04/05, doing well
-EKG and tele with NSR
-ZULEIKA: EF 55-60%, no sig valve disease
-ASA/statin
# Abnormal EKG
-c/w pericarditis; +rub on exam
-no chest pain
-monitor
# Hyperlipidemia
- goal LDL under 55: LDL is 53
-cont rosuvastatin 20mg daily
# Tobacco abuse
-quit earlier this month
Physical Exam
Vital Signs/Labs
Vital Signs
Temp Pulse Resp BP Pulse Ox
98.9 F 67 16 123/70 97
04/07/25 08:00 04/07/25 08:38 04/07/25 08:00 04/07/25 08:38 04/07/25 08:38
04/06/25 04/07/25 04/08/25
06:59 06:59 06:59
Actual Weight 82 kg 81.5 kg
04/07/25 04:58
04/07/25 04:58
PT 16.1 Sec (11.4-14.6) H 04/05/25 11:32
INR 1.28 04/05/25 11:32
APTT 33.8 Sec (23.4-35.0) 04/05/25 11:32
Magnesium 1.9 mg/dl (1.6-2.3) 04/07/25 04:58
Triglycerides 105 mg/dl (10-149) 04/06/25 03:10
LDL Cholesterol, Calc 53 mg/dl 04/06/25 03:10
VLDL Cholesterol, Calc 21 mg/dl (0-30) 04/06/25 03:10
HDL Cholesterol 38 mg/dl 04/06/25 03:10
Physical Exam
Constitutional: No acute distress and Comfortable
EENT: Moist mucous membranes
Cardiovascular: Rhythm & rate is regular, Pedal edema is absent, JVD pressure is normal and Systolic murmur absent
Respiratory: Respiratory effort normal and Lungs clear to auscul.
Neuro/Psych: AO x 3
Data Reviewed
-
Date of Service: April 07, 2025
EKG: Other (Tele: SR 60s)
Labs: Labs Reviewed by me
[2025-04-07] MEDS: CRESTOR 20 MG PO (10:16)
[2025-04-07] MEDS: LOPRESSOR 12.5 MG PO ×2 (10:16→20:59)
[2025-04-07] MEDS: MUCINEX 600 MG PO ×2 (10:16→21:00)
[2025-04-07] MEDS: PROTONIX 40 MG PO (10:16)
[2025-04-07] MEDS: COLCHICINE 0.6 MG PO (10:16)
[2025-04-07] MEDS: MAGNESIUM OXIDE 400 MG PO ×2 (10:17→21:00)
[2025-04-07] MEDS: LOW STRENGTH ASPIRIN 81 MG PO (10:17)
[2025-04-07] MEDS: NORVASC 2.5 MG PO (10:17)
[2025-04-07] MEDS: PACERONE 200 MG PO ×3 (10:17→22:35)
[2025-04-07] MEDS: SENOKOT 8.6 MG PO ×2 (10:17→21:00)
[2025-04-07] MEDS: NEURONTIN 100 MG PO ×3 (10:17→22:35)
[2025-04-07] MEDS: PLAVIX 75 MG PO (10:17)
[2025-04-07] MEDS: BACTROBAN 2% OINTMENT 1 APPLIC NASAL ×2 (10:18→20:59)
[2025-04-07] MEDS: NSS 500 IV ×2 (10:21→21:00)
[2025-04-07] MEDS: LIDOCAINE 4% PATCH TOPICAL (10:21)
[2025-04-07] MEDS: KCL 20 MEQ PO (10:33)
[2025-04-07] MEDS: LASIX 40 MG IV (10:33)
--- NOTE | 2025-04-07 10:43 | PTCARENOTE ---
CT removed, pt assisted from bed to chair without incident.
[2025-04-07] MEDS: FERRLECIT 110 MG IV (13:48)
--- NOTE | 2025-04-07 15:53 | PTCARENOTE ---
Patient received from Becky RN; AAOx3, responds spontaneously and follows commands; VSS; NSR on monitor; +2 right radial, left ulnar, and DP pulses; Shallow respirations; SpO2 91-96% on RA; Occasional, productive cough; Lungs diminished throughout;
+BS; Surgical sites intact; PIVx1 - #20 right hand; RIJ Cordis with KVO infusing; See nursing documentation for further information
[2025-04-07] MEDS: REMOVE LIDOCAINE PATCH REMOVE (20:35)
--- NOTE | 2025-04-07 21:00 | PTCARENOTE ---
Patient received resting in bed watching television. Patient A+A+Ox3. No neurological deficits noted. No c/o headache, dizziness or lightheadedness. Lungs diminished throughout lung blevins. SpO2 96% - Room air. Sinus Rhythm. Heart rate 70's.
Blood pressure 100/59 (70). Patient with no c/o chest pain, pressure or discomfort. Normoactive bowel sounds. No BM. Voiding without difficulty. Trace bilateral lower extremity edema. Positive palpable pulses. Left radial arterial site -
Incision intact - Surgical adhesive - Open to air - Positive Ulnar pulse. Sternal incision intact - Surgical adhesive - Open to air. Chest tube dressing intact. Right groin site intact. Right lower extremity incision intact. Patient with no c/o
back or flank pain. Right I.J. Cordis. Assessment as documented.
[2025-04-07] MEDS: DILAUDID 0.25 MG IV (22:45)
--- NOTE | 2025-04-08 | PTCARENOTE ---
Patient with c/o increasing sternal pain/discomfort. Roxicodone 5mg PO and IV Dilaudid 0.25mg for pain management. Patient now sleeping without difficulty. O2 2L via NC HS. Assessment as documented.
--- NOTE | 2025-04-08 04:40 | W.PN.CT ---
Addendum entered and electronically signed by Darien Lockwood MD 04/08/25 09:48:
I saw and examined the patient.
The PA's note was reviewed and I agree with the note.
Comment:
Looks great, ok for d/c home.
Original Note:
Today's Communication / Plan
-
No significant issues overnight�
Current meds (ASA, Plavix, Crestor, Amio, Norvasc for radial graft, iv iron, Gabapentin, Protonix).�
Colchicine�started�for concern of�pericarditis���
Consider DC cordis
OOB/IS/Ambulate�
DC�Planning
Assessment / Plan
-
- Multivessel Coronary Artery Disease with unstable angina- s/p Multi Arterial Coronary artery bypass grafting x 3 (In situ CARDONA to LAD, Ao to radial to bifurcating OM, Ao to RSVG to RPDA); Left atrial appendage exclusion (35mm clip); Rigid sternal
fixation with plates and sternal wires (2 gold plates with 8 x 14mm screws) by Dr. Lockwood on 04/05/25, pod #3
- Intraop ZULEIKA: LVEF preop and postop was 60% with no wma. There was a short period while packing the chest for sternal wire placement where he developed ST changes and some hypotension, suspected radial artery spasm. The padding was placed along
the radial artery graft with immediate resolution of the ST segment elevation. Repeat transesophageal echo revealed no significant regional wall motion abnormalities or any changes from preoperative studies. His left atrial appendage was verified
be free of any thrombus or debris preoperatively and found to be totally occlusive postoperatively with 35mm clip
- Unstable angina in the setting of multivessel coronary artery disease
- Recent smoking history- quit earlier this month
- Family history of CAD
- Hyperlipidemia
- Hypertension
- Psoriasis
- Acute postop blood loss anemia
- Acute postop atelectasis
- Acute postop hypovolemia with subsequent hypervolemia
- Acute postop hyponatremia
- Actue suspected postop pericarditis/+rub
Subjective
-
Date of Service: April 08, 2025
Objective Data
-
PT 16.1 Sec (11.4-14.6) H 04/05/25 11:32
INR 1.28 04/05/25 11:32
APTT 33.8 Sec (23.4-35.0) 04/05/25 11:32
Vital Signs
Vital Signs
Temp Pulse Resp BP Pulse Ox
99.8 F 63 16 108/58 91
04/07/25 22:30 04/08/25 04:00 04/07/25 22:30 04/07/25 22:35 04/07/25 22:30
CT Intake/Output/Weight
04/07/25 04/07/25 04/08/25
06:59 18:59 06:59
Intake Total 20 / 360 340 / 360
Output Total 660 / 1460 750 / 750
Balance -660 / -756.9 -730 / -390 340 / -390
SaO2: 91
Physical Exam
-
General: AOx3
Cardiovascular: Regular rate & rhythm
Respiratory: Clear and Equal
Sternum: Stable
Incision: Clean, Dry and Intact
Extremities: Edema +1
[2025-04-08 04:55] VITALS: BP 112/50
[2025-04-08 05:13] LABS: Hematocrit 30.2 % (39.0-52.0); Hemoglobin 10.3 g/dL (13.0-18.0); Mean Corp Hgb Conc. 34.1 g/dL (33.0-37.0); Mean Corpuscular Volume 90.7 fL (80.0-94.0); Platelet Count 150 10^3/uL (130-400); Red Cell Dist. Width 13.0 % (11.5-14.5)
[2025-04-08] MEDS: TYLENOL 975 MG PO (05:16)
[2025-04-08] MEDS: ROXICODONE 5 MG PO (05:17)
[2025-04-08 05:42] LABS: Blood Urea Nitrogen 14 mg/dl (9-20); Calcium 8.1 mg/dl (8.4-10.2); Carbon Dioxide 30 mmol/L (22-30); Chloride 101 mmol/L (98-107); Estimated Creatinine Clearance 98 ml/min; Glucose 95 mg/dl (70-99); Magnesium 1.9 mg/dl (1.6-2.3); Potassium 4.1 mmol/L (3.5-5.1); Sodium 132 mmol/L (135-145); eGFR > 60.00
[2025-04-08 06:00] VITALS: BMI 27.9
--- NOTE | 2025-04-08 06:00 | PTCARENOTE ---
Patient A+A+Ox3. Roxicodone 5mg PO for pain management. Patient to bathroom by self. Steady gait. Voided 900 ml bijan urine. OOB to chair. Standing scale weight 80.6 kg. Assessment/Interventions as documented.
[2025-04-08 07:45] VITALS: BP 102/60
--- NOTE | 2025-04-08 07:59 | W.PN.CD ---
Today's Communication / Plan
-
Continue routine post operative management.
Continue post operative antithrombotic, antiarrhythmic therapy.
Incentive spirometry.
Ambulation.
Discharge planning.
Impression / Plan
-
Impression/Plan: 54 yo male with newly diagnosed severe CAD, hyperlipidemia, tobacco abuse underwent CABG x 3 (CARDONA to LAD, radial to bifurcating OM, SVG to RPDA) and left atrial appendage exclusion (#35mm clip).
#Severe CAD
-Chronic, progressive.
-s/p CABG x3 (CARDONA to LAD, LRA to OM, SVG to RPDA) on 04/05/[address] Lockwood.
-EKG and tele with NSR.
-ZULEIKA: EF 55-60%, no significant valve disease.
-Continue amiodarone, amlodipine, aspirin, clopidogrel, metoprolol and rosuvastatin.
-Incentive spirometry.
-Ambulation.
#Pericarditis
-Acute, post operative; abnormal EKG + rub on exam.
-Colchicine started.
#Hyperlipidemia
-Chronic, stable/controlled.
-Goal LDL < 55; current LDL = 53.
-Continue rosuvastatin 20mg daily.
#Tobacco abuse
-Quit earlier this month.
#Dispo
-CT surgery discharging today.
Subjective/Interval History:
No acute events.
Post operative surgical pain managed with oxycodone.
Furosemide 40 mg IV given yesterday.
Weight down to 80.6 kg.
SaO2 = 95% on RA.
DATA:
Cardiac Catheterization, 03/28/2025:
CONCLUSIONS
1. Right dominant circulation with an 80+% lesion in the proximal/mid LAD involving the origin of the first diagonal, a 70% lesion in the proximal margin of OM1, a 60+% lesion within the ostium/proximal RCA with catheter dampening on engagement
followed by a 75% lesion in the mid RCA and several 20% lesions in the distal RCA.
2. Normal filling pressures (LVEDP = 9 mmHg at 79.2 kg).
TTE, 04/02/2025:
SUMMARY
1. Normal biventricular size and systolic function. No LV wall motion abnormalities.
2. No significant valvular heart disease.
3. No pericardial effusion.
4. No prior study available for comparison.
CABG, 04/05/2025:
Procedure(s) Performed:
1. Standard Sternotomy with Aortic and Right Atrial Cannulation
2. Internal Mammary Artery Harvesting, Left
3. Multi Arterial Coronary artery bypass grafting x 3 (In situ CARDONA to LAD, Ao to radial to bifurcating OM, Ao to RSVG to RPDA)
4. Endoscopic vein harvesting of right lower extremity and left radial artery for conduit
5. Transesophageal echocardiography
6. Placement of Temporary Ventricular Pacing Wires
7. Left atrial appendage exclusion (35mm clip)
8. Rigid sternal fixation with plates and sternal wires (2 gold plates with 8 x 14mm screws)
Physical Exam
Vital Signs/Labs
Vital Signs
Temp Pulse Resp BP Pulse Ox
37.0 C 72 16 112/50 93
04/08/25 04:55 04/08/25 05:00 04/08/25 04:55 04/08/25 04:55 04/08/25 04:55
04/06/25 04/07/25 04/08/25
11:59 11:59 11:59
Actual Weight 82 kg 81.5 kg 80.6 kg
04/08/25 04:58
04/08/25 04:58
PT 16.1 Sec (11.4-14.6) H 04/05/25 11:32
INR 1.28 04/05/25 11:32
APTT 33.8 Sec (23.4-35.0) 04/05/25 11:32
Magnesium 1.9 mg/dl (1.6-2.3) 04/08/25 04:58
Triglycerides 105 mg/dl (10-149) 04/06/25 03:10
LDL Cholesterol, Calc 53 mg/dl 04/06/25 03:10
VLDL Cholesterol, Calc 21 mg/dl (0-30) 04/06/25 03:10
HDL Cholesterol 38 mg/dl 04/06/25 03:10
Physical Exam
Constitutional: No acute distress and Comfortable
EENT: Anicteric and Moist mucous membranes
Cardiovascular: Rhythm & rate is regular, Pedal edema is absent, JVD pressure is normal, S1S2 is normal and Rub present
Respiratory: Respiratory effort normal, Lungs clear to auscul., Wheeze Absent, Crackles Absent and Rhonchi Absent
GI: Soft, Distention absent, Flat, Non tender and Normal bowel sounds
Neuro/Psych: AO x 3
Data Reviewed
-
Date of Service: April 08, 2025
Medical Decision Making: Reviewed Test Results, Independent Historian Assessment and Test Interpretation
EKG: Tracing Personally Visualized and interpreted and Report Reviewed by me
Echo: Report Reviewed by me
X-Ray/CT/US/MRI/NUC/PET: Image Personally Visualized and interpreted and Report Reviewed by me
Medical Tests (PFT, Pathology etc): Image Personally Visualized and interpreted and Report Reviewed by me
Labs: Labs Reviewed by me
Old Records: Reviewed
--- NOTE | 2025-04-08 08:05 | PTCARENOTE ---
Received pt from traction power engineer RN; pt AAOx3 and resting comfortably in chair; NSR on monitor and VSS: RIJ Cordis and PIV x1 patent; Lungs diminished; IS to 1000; positive bowel sounds; pt voiding yellow urine; palpable pulses throughout and positive
left Ulnar pulse; trace lower extremity edema noted; all surgical sites C/D/I; see nursing documentation for further details.
--- NOTE | 2025-04-08 08:05 | W.DCSUMMARY ---
Discharge Summary
Discharge Data
Date of Admission: 04/05/25
Date of Discharge: 04/08/25
-
Pending Results: No
Hospital Course
Primary care physician: Fritz Smith
Outpatient dressmaking teacher: Pancho Taylor
Inpatient consultants: [facility] Cardiology, pulmonary background check coordinator
Procedures:
1. CABG, left atrial appendage clip
Primary Diagnosis:
1. multivessel coronary artery disease
Secondary Diagnoses:
1. Hyperlipidemia
2. Hypertension
3. Psoriasis
4. Pyronies disease
- Acute postop blood loss anemia
- Acute postop respiratory insufficiency
- Acute postop hypovolemia with subsequent hypervolemia
- Acute postop hyponatremia
- Acute suspected postop pericarditis/+rub
HPI: 54-year-old male was electively admitted on 04/05/25 for CABG due to multivessel coronary disease and unstable angina
Hospital course: Patient was taken to the operating room and underwent CABG x3 (CARDONA to LAD, radial to bifurcating OM, SVG to RPDA), left atrial appendage exclusion (35mm clip) by Dr. Darien Lockwood.Rigid sternal fixation with plates and sternal wires
(2 gold plates with 8 x 14mm screws) by Dr. Darien Lockwood. Brief vasospasm was noted when placing sternal wires which resolved quickly with papaverine and Cardene. Post procedure ZULEIKA reported an EF of 55-60% without regional wall abnormality. For
further details, please see operative report. Patient required no intraoperative blood products and returned to CVICU on Levophed, insulin, Precedex, and Cardene. Patient was extubated @ 1600 on on the day of surgery. Two mediastinal and two
pleural Chest tubes were discontinued on postoperative day #1 and aspirin/Plavix initiated. Cardene was transitioned to oral Norvasc for radial graft patency and will be maintained for 3 months. Temporary ventricular wires and mediastinal chest
tubes were removed on postoperative day #2. Colchicine was initiated for pericarditis and will continue for one month. Patient ambulated in halls and completed steps with cardiac rehab. Left radial harvest site intact without erythema. Labs on day
of discharge: WBC 12.7, hemoglobin 10.3, platelets 150, sodium 132, potassium 4.1, creatinine 0.8. Patient deemed stable for discharge and will have follow-up BMP in 1 week.
Home medication changes:
Toprol dose increased from 12.5 to 25 mg daily
Colchicine for pericarditis
Discharge Plan
-
Patient Disposition: Home (Routine Discharge)
Discharge Diagnosis/Procedures: CABG x 3 (04/05/25)
Condition: Good
Diet: Low Cholesterol and Low Sodium
Activity: No strenuous activity
Driving Restrictions: Not until seen by your Dr
Bathing Restrictions: OK to Shower
Blood Work: BMP in 1 week
Other Services: Cardiac Rehab
Specialty Instructions: Weigh Daily- Call MD for wt gain/loss 3 lbs overnight/5 lbs in 1 week
Referrals:
CT Transitional Care Nurse [Outside]
Referral Note:
The Cardiothoracic Transitional Care Nurse will call you to set up a visit in 1-2 days.
[facility] [address] Cardiac Rehab [Outside] - 05/15/25 10:00 am
Referral Note: Cardiac Rehab Orientation appointment is on 05/15/25 at 10am.
The Cardiac Rehab gym is located on the first floor of the [facility].
Kaylie Don CRNP [Specified Professional Personl, Cardiology] - 05/24/25 8:40 am
Referral Note: Your appt on 04/[address] @[address] Ahn was CANCELLED
Fritz Smith DO [Family Provider, Family Practice]
Darien Lockwood MD [Active, Cardiac Surgery] - 05/06/25 2:15 pm
Additional Discharge Medication Instructions: Lasix as needed for weight gain, colchicine for pericarditis,
Prescriptions:
New
acetaminophen 325 mg Tablet
650 mg PO Q4HPRN PRN (Reason: mild pain,headache,temp >101F ) Qty: 0 0RF
gabapentin 100 mg Capsule
100 mg PO TID Qty: 30 0RF
oxycodone 5 mg Tablet
5 mg PO Q4HPRN PRN (Reason: severe pain) Qty: 10 0RF
metoprolol succinate 25 mg capsule,sprinkle,ER 24hr
25 mg PO DAILY Qty: 30 2RF
furosemide [Lasix] 20 mg tablet
20 mg PO .daily prn Qty: 7 0RF
Rx Instructions:
take 1 tablet daily as needed if weight gain of more than 2 pounds overnight or 5 pounds in a week
cyclobenzaprine 10 mg Tablet
5 mg PO Q8HPRN PRN (Reason: muscle spasm) Qty: 10 0RF
amlodipine 2.5 mg Tablet
2.5 mg PO DAILY Qty: 30 2RF
clopidogrel 75 mg Tablet
75 mg PO DAILY Qty: 30 2RF
pantoprazole 40 mg Tablet,Delayed Release (Dr/Ec)
40 mg PO DAILY Qty: 30 2RF
colchicine 0.6 mg Tablet
0.6 mg PO DAILY Qty: 30 0RF
Continued
aspirin [Aspir-Low] 81 MG tablet,delayed release (DR/EC)
81 mg PO DAILY
multivit with min-folic acid [Multivitamin Gummies] 200 mcg Tablet,Chewable
1 tab PO WEEKLY
rosuvastatin 20 mg tablet
20 mg PO DAILY Qty: 30 5RF
Discontinued
nitroglycerin 0.4 mg tablet, sublingual
0.4 mg sublingual [id number] PRN (Reason: chest pain) Qty: 25 5RF
Rx Instructions:
has not taken med at all.
metoprolol succinate 25 mg tablet extended release 24 hr
12.5 mg PO DAILY
Discharge Orders:
Discharge Patient (As Directed); Ordered 04/08/25
Ordered By: Madonna Chavez
Care Plan Goals
Care Plan Goals:
Problem: Readiness for enhanced knowledge related to diagnosis and treatment plan
Goal: Understand your diagnosis and treatment plan needs, including medications if applicable.
Instructions: Know your diagnosis, underlying causes and treatment plan options, including medications if applicable. Consult with your health care team to learn about your diagnosis and treatment plan, including medications if applicable.
Discharge Date and Time
Print Language: KYRGYZ
[2025-04-08] MEDS: PROTONIX 40 MG PO (08:12)
[2025-04-08] MEDS: LOPRESSOR 12.5 MG PO (08:12)
[2025-04-08] MEDS: MUCINEX 600 MG PO (08:12)
[2025-04-08] MEDS: CRESTOR 20 MG PO (08:12)
[2025-04-08] MEDS: PLAVIX 75 MG PO (08:12)
[2025-04-08] MEDS: BACTROBAN 2% OINTMENT 1 APPLIC NASAL (08:12)
[2025-04-08] MEDS: SENOKOT 8.6 MG PO (08:12)
[2025-04-08] MEDS: MAGNESIUM OXIDE 400 MG PO (08:12)
[2025-04-08] MEDS: LOW STRENGTH ASPIRIN 81 MG PO (08:12)
[2025-04-08] MEDS: PACERONE 200 MG PO (08:12)
[2025-04-08] MEDS: NEURONTIN 100 MG PO (08:12)
[2025-04-08] MEDS: COLCHICINE 0.6 MG PO (08:13)
[2025-04-08] MEDS: NORVASC 2.5 MG PO (08:13)
[2025-04-08] MEDS: LIDOCAINE 4% PATCH TOPICAL (08:13)
[2025-04-08 09:09] VITALS: BP 109/64
[2025-04-08 09:19] VITALS: BP 116/69
[2025-04-08 09:26] VITALS: BP 109/64; BP 116/89; PULSE 69; O2SAT 95; O2SAT 98
--- NOTE | 2025-04-08 09:37 | PTCARENOTE ---
RIJ Cordis removed per CTNP order.
[2025-04-08] MEDS: FLUZONE (6 mos+) 2025-2026 FORMULA 0.5 ML IM (10:54)
[2025-04-08 10:59] VITALS: BP 103/55
--- NOTE | 2025-04-08 11:31 | PTCARENOTE ---
Pt showered self with CHG soap; dressed self; alarm security or surveillance monitor removed and IV x1 removed; discharge paperwork gone over with pt and , all questions were answered. Awaiting transport for discharge.
== END 2025-04-08 11:48 | disposition home or self-care (01) | DRG 236 ==
LOC: CVICU 05:03
PROVIDERS: Anesthesiology; Nurse Practitioner; ADMITTING PHYSICIAN Thoracic Surgery (Cardiothoracic Vascular Surgery); CONSULT PHYSICIAN Internal Medicine; CONSULT PHYSICIAN Internal Medicine Critical Care Medicine; FAMILY PHYSICIAN Family Medicine
PROC: B24BZZ4 Ultrasonography of Heart with Aorta, Transesophageal (ICD-10-PCS; 2025-04-05)
PROC: 02100AW Bypass Coronary Artery, One Artery from Aorta with Autologous Arterial Tissue, Open Approach (ICD-10-PCS; 2025-04-05)
PROC: 06BP4ZZ Excision of Right Saphenous Vein, Percutaneous Endoscopic Approach (ICD-10-PCS; 2025-04-05)
PROC: 02100Z9 Bypass Coronary Artery, One Artery from Left Internal Mammary, Open Approach (ICD-10-PCS; 2025-04-05)
PROC: 5A1221Z Performance of Cardiac Output, Continuous (ICD-10-PCS; 2025-04-05)
PROC: 02L70CK Occlusion of Left Atrial Appendage with Extraluminal Device, Open Approach (ICD-10-PCS; 2025-04-05)
PROC: 03BC4ZZ Excision of Left Radial Artery, Percutaneous Endoscopic Approach (ICD-10-PCS; 2025-04-05)
PROC: 021009W Bypass Coronary Artery, One Artery from Aorta with Autologous Venous Tissue, Open Approach (ICD-10-PCS; 2025-04-05)
PROC: 3E02340 Introduction of Influenza Vaccine into Muscle, Percutaneous Approach (ICD-10-PCS; 2025-04-08)
DX: I25.110 Atherosclerotic heart disease of native coronary artery with unstable angina pectoris (principal); D62 Acute posthemorrhagic anemia; E87.1 Hypo-osmolality and hyponatremia; I30.8 Other forms of acute pericarditis; R06.89 Other abnormalities of breathing; E86.1 Hypovolemia; E87.70 Fluid overload, unspecified; I95.9 Hypotension, unspecified; E78.5 Hyperlipidemia, unspecified; I10 Essential (primary) hypertension; L40.9 Psoriasis, unspecified; N48.6 Induration penis plastica; E83.51 Hypocalcemia; Z86.16 Personal history of COVID-19; Z87.891 Personal history of nicotine dependence; Z82.49 Family history of ischemic heart disease and other diseases of the circulatory system; Z23 Encounter for immunization
CPT/HCPCS: 36415; 71045; 80048; 80053; 80061; 81003; 81015; 82248; 82330; 82565; 82805; 82947; 82962; 83036; 83735; 84132; 84302; 84520; 85014; 85018; 85025; 85027; 85049; 85610; 85730; 86850; 86900; 86901; 86920; 87070; 87086; 90656; 93005; 93306; 93312; 93320; 93325; 93880; 93923; 93931; 94002; 94010; 94727; 94729; 99406; C1713; G0008; J2916